=== PATIENT | female | born 1950 | race Caucasian/White ===

== ENCOUNTER → 2017-08-13 | Outpatient (CLI) | payer MEDICARE ==
--- NOTE | 2017-08-14 10:46 | MM ---
Reason for exam: screening (asymptomatic). Last mammogram was performed 1 year and 2 months ago. History: Patient is postmenopausal and history of other cancer. Physical Findings: A clinical breast exam by your physician is recommended on an annual basis and results should be correlated with mammographic findings. MG 3D Screening Mammo W/Cad Bilateral CC and MLO view(s) were taken. Prior study comparison: May 30, 2016, bilateral MG screening mammo w CAD. April 18, 1998, bilateral special view mammogram. The breast tissue is heterogeneously dense. This may lower the sensitivity of mammography. There is no discrete abnormality. No significant changes when compared with prior studies. ASSESSMENT: Negative, BI-RAD 1 RECOMMENDATION: Routine screening mammogram of both breasts in 1 year.
== END ==
LOC: RADMAMWWP 13:19
PROVIDERS: ATTEND Family Medicine
DX: Z12.31 Encounter for screening mammogram for malignant neoplasm of breast (principal)
CPT/HCPCS: 77063; G0202

== ENCOUNTER → 2019-03-04 | Outpatient (CLI) | payer MEDICARE ==
--- NOTE | 2019-03-04 11:04 | ECHOF ---
Referral Reason:R07.9 chest pain/I10 hypertention MEASUREMENTS -------- HEIGHT: 167.6 cm WEIGHT: 56.7 kg BP: RVIDd: 2.8 cm (< 3.3) IVSd: 1.0 cm (0.6 - 1.1) LVIDd: 3.2 cm (3.9 - 5.3) LVPWd: 1.0 cm (0.6 - 1.1) IVSs: 1.2 cm LVIDs: 2.2 cm LVPWs: 1.1 cm LAESV Index (A-L): 18.04 ml/m Ao Diam: 2.3 cm (2.0 - 3.7) AV Cusp: 1.5 cm (1.5 - 2.6) LA Diam: 2.8 cm (2.7 - 3.8) MV EXCURSION: 12.690 mm (> 18.000) MV EF SLOPE: 79 mm/s (70 - 150) EPSS: 0.3 cm MV E Joe: 0.62 m/s MV DecT: 347 ms MV A Joe: 0.61 m/s MV E/A Ratio: 1.02 RAP: 5.00 mmHg RVSP: 26.66 mmHg FINDINGS -------- Sinus rhythm. This was a technically good study. The left ventricular size is normal. Left ventricular wall thickness is normal. Overall left vent ricular systolic function is normal with, an EF between 55 - 60 %. The right ventricle is normal in size and function. Normal LA size by volume 22+/-6 ml/m2. The right atrium is normal in size. Aortic valve is trileaflet and is mildly thickened. There is no evidence of aortic regurgitation. There is no evidence of aortic stenosis. The mitral valve leaflets are mildly thickened. There is trace to mild mitral regurgitation. Ther e is mildly calcified chordae. Trace tricuspid regurgitation present. Right ventricular systolic pressure is normal at < 35 mmHg. There is no evidence of pulmonary hypertension. Trace/mild (physiologic) pulmonic regurgitation. The aortic root size is normal. Normal inferior vena cava with normal inspiratory collapse consistent with estimated right atrial pre ssure of 5 mmHg. There is no pericardial effusion. CONCLUSIONS -------- 1. Sinus rhythm. 2. This was a technically good study. 3. The left ventricular size is normal. 4. Left ventricular wall thickness is normal. 5. Overall left ventricular systolic function is normal with, an EF between 55 - 60 %. 6. Normal LA size by volume 22+/-6 ml/m2. 7. Aortic valve is trileaflet and is mildly thickened. 8. The mitral valve leaflets are mildly thickened. 9. There is trace to mild mitral regurgitation. 10. There is mildly calcified chordae. 11. Trace tricuspid regurgitation present. 12. Right ventricular systolic pressure is normal at < 35 mmHg. 13. There is no evidence of pulmonary hypertension. 14. Trace/mild (physiologic) pulmonic regurgitation. 15. The aortic root size is normal. 16. There is no pericardial effusion. BIOFUELS MANAGER: Gene Aldridge RDCS
--- NOTE | 2019-03-04 11:07 | P.STRESS ---
- Stress Test Note Stress Test Results/Findings: Exam Performed: stress test Exam Date: 03/04/19 Reason for Exam: Chest Pain Height: 5 ft 6 in Weight: 56.699 kg Protocol: Jb Stage: 2 Duration of Exercise: 3:30 Resting Heart Rate: 64 Resting Blood Pressure: 146/83 Maximum Achieved Heart Rate: 124 Maximum Achieved Blood Pressure: 192/70 85% PMHR: 129 100% PMHR: 152 METS: 5.2 Technologist Comment: Stress Test Results/Findings: This is a 68-year-old female being evaluated for symptoms of chest pain and shortness of breath and also palpitations. She has history of hypertension, hypercholesterolemia and family history of ischemic heart disease. Stress data: The baseline EKG showed sinus rhythm with normal NC interval and QRS duration. Patient walked on the Jb protocol for about 4 minutes achieving a maximum heart rate of 124 with a blood pressure 185/78. EKGs taken during and after exercise did not reveal any significant changes from the baseline. Final impression: #1. Negative stress test #2 . Patient experienced shortness of breath and chest tightness. #3. No arrhythmias noted. #4. Limited excess capacity #5 the symptoms resolved with rest
--- NOTE | 2019-03-06 11:25 | EST ---
Stress Test Results/Findings: Exam Performed: stress test Exam Date: 03/04/19 Reason for Exam: Chest Pain Height: 5 ft 6 in Weight: 56.699 kg Protocol: Jb Stage: 2 Duration of Exercise: 3:30 Resting Heart Rate: 64 Resting Blood Pressure: 146/83 Maximum Achieved Heart Rate: 124 Maximum Achieved Blood Pressure: 192/70 85% PMHR: 129 100% PMHR: 152 METS: 5.2 Technologist Comment: Stress Test Results/Findings: This is a 68-year-old female being evaluated for symptoms of chest pain and shortness of breath and also palpitations. She has history of hypertension, hypercholesterolemia and family history of ischemic heart disease. Stress data: The baseline EKG showed sinus rhythm with normal ND interval and QRS duration. Patient walked on the Jb protocol for about 4 minutes achieving a maximum heart rate of 124 with a blood pressure 185/78. EKGs taken during and after exercise did not reveal any significant changes from the baseline. Final impression: #1. Negative stress test #2 . Patient experienced shortness of breath and chest tightness. #3. No arrhythmias noted. #4. Limited excess capacity #5 the symptoms resolved with rest MTDD
== END | disposition home or self-care (01) ==
LOC: RADNMMAIN 08:52
PROVIDERS: ATTEND Family Medicine
DX: I34.0 Nonrheumatic mitral (valve) insufficiency (principal); I10 Essential (primary) hypertension
CPT/HCPCS: 93017; 93306

== ENCOUNTER → 2019-07-15 | Outpatient (CLI) | payer MEDICARE ==
--- NOTE | 2019-07-17 07:53 | MM ---
Reason for exam: screening (asymptomatic). Last mammogram was performed 1 year and 11 months ago. History: Patient is postmenopausal and history of other cancer. Physical Findings: A clinical breast exam by your physician is recommended on an annual basis and results should be correlated with mammographic findings. MG 3D Screening Mammo W/Cad Bilateral CC and MLO view(s) were taken. Prior study comparison: August 13, 2017, bilateral MG 3d screening mammo w/cad. May 30, 2016, bilateral MG screening mammo w CAD. The breast tissue is heterogeneously dense. This may lower the sensitivity of mammography. Benign appearing calcifications in the left breast. No significant changes when compared with prior studies. ASSESSMENT: Benign, BI-RAD 2 RECOMMENDATION: Routine screening mammogram of both breasts in 1 year.
== END | disposition home or self-care (01) ==
LOC: RADMAMWWP 13:55
PROVIDERS: ATTEND Family Medicine
DX: Z12.31 Encounter for screening mammogram for malignant neoplasm of breast (principal)
CPT/HCPCS: 77063; 77067

== ENCOUNTER → 2021-08-08 | Outpatient (CLI) | payer MEDICARE ==
--- NOTE | 2021-08-09 04:34 | MR ---
EXAMINATION TYPE: MR shoulder RT wo con DATE OF EXAM: 08/08/2021 COMPARISON: None HISTORY: Right Shoulder pain Multiplanar multiecho imaging of the right shoulder without contrast. There is shoulder joint effusion. Subscapularis tendon is intact. There is fluid around the biceps te ndon. Glenoid harvey appear fairly normal. There is some spurring on the humeral head. There is osteoa rthritic narrowing of the glenohumeral joint space. There is spurring at the AC joint and mild subacr omial impingement. There is mild thickening of the supraspinatus tendon at the greater tuberosity of the humerus. I see no full-thickness tear. There is partial tear. There is no evidence of a fracture. IMPRESSION: Moderate hypertrophic osteoarthritis at the shoulder joint. Mild subacromial impingement. Shoulder mee int effusion consistent with synovitis. There is small partial tear of the supraspinatus tendon. No f ull-thickness tear.
== END | disposition home or self-care (01) ==
LOC: RADMRIMAIN 12:38
PROVIDERS: ATTEND Orthopaedic Surgery
DX: M19.011 Primary osteoarthritis, right shoulder (principal); M75.111 Incomplete rotator cuff tear or rupture of right shoulder, not specified as traumatic

== ENCOUNTER → 2021-08-18 | Outpatient (CLI) | payer MEDICARE ==
--- NOTE | 2021-08-21 09:23 | MM ---
Reason for exam: screening (asymptomatic). Last mammogram was performed 2 years and 1 month ago. History: Patient is postmenopausal and history of other cancer. Benign excisional biopsy of the right breast, 2000. Physical Findings: A clinical breast exam by your physician is recommended on an annual basis and results should be correlated with mammographic findings. MG 3D Screening Mammo W/Cad Bilateral CC and MLO view(s) were taken. Prior study comparison: July 15, 2019, bilateral MG 3d screening mammo w/cad. August 13, 2017, bilateral MG 3d screening mammo w/cad. The breast tissue is heterogeneously dense. This may lower the sensitivity of mammography. There is no discrete abnormality. No significant changes when compared with prior studies. ASSESSMENT: Negative, BI-RAD 1 RECOMMENDATION: Routine screening mammogram of both breasts in 1 year.
== END | disposition home or self-care (01) ==
LOC: RADMAMWWP 07:44
PROVIDERS: ATTEND Family Medicine
DX: Z12.31 Encounter for screening mammogram for malignant neoplasm of breast (principal); Z78.0 Asymptomatic menopausal state
CPT/HCPCS: 77063; 77067

== ENCOUNTER 2021-09-13 07:16 | Day surgery (SDC) | payer MEDICARE ==
[2021-09-12 08:46] VITALS: BMI 22.1
--- NOTE | 2021-09-12 18:28 | HP ---
HISTORY AND PHYSICAL REASON FOR ADMISSION: Surgery is scheduled for 09/13/2021 HISTORY OF PRESENT ILLNESS: Sunitha Dia is a 71-year-old patient seen with progressive right shoulder pain. We discussed options for treatment. She elected to proceed with right shoulder arthroscopy. Consent was obtained. PAST MEDICAL HISTORY: Hyperlipidemia and hypertension. PAST SURGICAL HISTORY: Left wrist surgery. DAILY MEDICATIONS: Amlodipine, aspirin. ALLERGIES: None. SOCIAL HISTORY: Denies tobacco use. PHYSICAL EVALUATION OF THE RIGHT SHOULDER: Flexion is 130 degrees, abduction is 100 degrees. External rotation is 40 degrees with weakness. Tenderness along the anterolateral acromion and rotator cuff insertion site. Impingement positive at 90 degrees. Cross-body adduction sign is positive. Drop-arm sign is positive. Distal neurovascular exam is intact. RADIOGRAPHS: Right shoulder radiographs revealed a lateral downsloping anterior acromion and cystic changes of the tuberosity. Right shoulder MRI revealed impingement, acromioclavicular joint osteoarthritis and partial rotator cuff tendon tear. IMPRESSION: 1. Right shoulder impingement with partial rotator cuff tear. 2. Right shoulder acromioclavicular joint osteoarthritis. 3. Hyperlipidemia. 4. Hypertension. PLAN: Right shoulder arthroscopy with subacromial decompression, possible arthroscopic rotator cuff repair, Shannon procedure and debridement. Surgery scheduled for 09/13/2021. MMODL / IJN: [id number] /
[2021-09-13] MEDS ORDERED: ONDANSETRON 4 MG/2 ML VIAL IVP ONE (07:43)
[2021-09-13] MEDS ORDERED: LIDOCAINE 1% (10MG/ML) FOR IV START INTRADERMA PRN (07:43)
[2021-09-13] MEDS ORDERED: DEXAMETHASONE SOD PHOSPHATE 4 MG/ML 1 ML VIAL IV ONE (07:43)
[2021-09-13] MEDS ORDERED: MIDAZOLAM 2 MG/2 ML VIAL IV PRN (07:43)
[2021-09-13] MEDS ORDERED: HYDROmorphone 0.5 MG/0.5 ML SYRINGE IVP PRN (07:43)
[2021-09-13] MEDS ORDERED: LACTATED RINGERS 1,000 ML IV SCH (07:43)
[2021-09-13] MEDS ORDERED: MIDAZOLAM 2 MG/2 ML VIAL IV ONE (08:40)
[2021-09-13 08:41] LABS: African American GFR (CKD) >90 (>60 ml/min/1.73 sqM); Anion Gap 10 mmol/L; Blood Urea Nitrogen 13 mg/dL (7-17); Calcium 9.9 mg/dL (8.4-10.2); Carbon Dioxide 22 mmol/L (22-30); Chloride 106 mmol/L (98-107); Glucose 131 mg/dL (74-99); Non-African American GFR(CKD) >90 (>60 ml/min/1.73 sqM); Potassium 4.2 mmol/L (3.5-5.1); Sodium 138 mmol/L (137-145)
[2021-09-13] MEDS ORDERED: SUCCINYLCHOLINE CHLORIDE 100 MG/5 ML SYR IV ONE (08:52)
[2021-09-13] MEDS ORDERED: ROPIVACAINE 5 MG/ML 30 ML VIAL ONE (08:52)
[2021-09-13] MEDS ORDERED: ePHEDrine SULFATE/0.9% NACL/PF 50 MG/5 ML SYRINGE IV ONE (08:52)
[2021-09-13] MEDS ORDERED: PROPOFOL 10 MG/ML 20 ML VIAL IV ONE (08:52)
[2021-09-13] MEDS ORDERED: fentaNYL (PF) 50 MCG/ML 2 ML AMP ONE (08:52)
[2021-09-13] MEDS ORDERED: LIDOCAINE 1% INJ 10MG/ML (20 ML MDV) ONE (08:52)
[2021-09-13 10:20] VITALS: TEMP 97.1
--- NOTE | 2021-09-13 10:32 | P.OP ---
Date of Procedure: 09/13/21 Preoperative Diagnosis: Right shoulder impingement Postoperative Diagnosis: 1. Right shoulder rotator cuff tear 2. Right shoulder impingement 3. Right shoulder acromioclavicular joint osteoarthritis 4. Right shoulder partial long head biceps tendon tear 5. 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 Right shoulder arthroscopic rotator cuff repair 2. Right shoulder arthroscopic subacromial decompression 3. Right shoulder arthroscopic Shannon procedure 4. Right shoulder arthroscopic biceps tenotomy 5. Right shoulder arthroscopic chondroplasty humeral head Implants: 15.5 Arthrex swivel lock anchor Anesthesia: GETA, regional (Interscalene block) Surgeon: Darius Douglas Advertising Manager #1: Ascencion Springer Estimated Blood Loss (ml): 7 Pathology: none sent Condition: stable Disposition: PACU Indications for Procedure: 71-year-old patient seen with progressive right shoulder pain. After treatment options discussed, she elected to proceed with arthroscopy. Operative Findings: See description of procedure Description of Procedure: Patient underwent an interscalene block by department of anesthesia. The patient was then taken to the operative suite. The patient underwent a general anesthetic by the department of anesthesia. The patient was placed into a lateral position and secured. There was appropriate padding of the bony prominence. Right shoulder was then prepped and draped in normal sterile orthopedic fashion. We placed the extremity in 10 pounds of longitudinal traction. A posterior incision was now made for a posterior working portal site. The trocar and cannula were inserted into the glenohumeral joint. Arthroscopy was initiated. Spinal needle was now inserted anteriorly, to ascertain the anterior working portal site. An incision was now made in that area, a trocar was inserted followed by a probe. There was an area of grade 12 chondromalacia humeral head with osteochondral tear present. There were Gen. I raised grade 2 chondromalacia changes of the glenoid fossa. There was hyperemia and partial tearing of the long head biceps tendon. The labrum was probed and found to be stable. I performed an arthroscopic biceps tenotomy. I performed a chondroplasty of the humeral head. The residual osteochondral surface of the humeral head was stable. The residual labrum was stable. Instruments were now removed from the glenohumeral joint. Utilizing the posterior working portal site, the trocar and cannula were inserted into the subacromial space. Arthroscopy initiated. I made an incision 2 fingerbreadths lateral to the acromion. I introduced my trocar followed by my ArthroCare ablator. I now began ablating thick subacromial bursal tissue, which exposed the undersurface of the anterior acromion. There was diminished subacromial space. There was a very prominent anterior acromion. A motorized bur was introduced and a subacromial decompression was performed. I also excised so me osteophytes off the inferior aspect of the distal clavicle. The AC joint was visualized and noted to be fairly arthritic. The motorized bur was introduced in the anterior portal site and a Shannon procedure was performed without difficulty, decompressing the AC joint nicely. I turned my attention to the rotator cuff. There was a 1.5 cm rotator cuff tendon tear along the anterior aspect of the distal supraspinatus. I debrided the margins getting down to stable tendon tissue. I abraded the footprint with a motorized bur. With the assistance of Charlie SALMERON I passed 2 everted mattress sutures through good bites of rotator cuff tendon. I punched a hole in the footprint for insertion of an anchor. All 4 limbs of suture were passed through the eyelet of a 5.5 Arthrex swivel lock anchor. I placed the eyelet into the pre-punched hole. I held that in position while Charlie SALMERON tensioned all sutures and deployed the anchor with good fixation noted. All residual suture limbs were now clipped. We had good compression of the tendon along the entire footprint. Instruments now removed from the portal sites. All portal sites were approximated with nylon suture. Sterile dressings were applied followed by a shoulder sling. Ascencion SALMERON assisted in this complex case. The patient was awakened, transferred to a bed, and taken to recovery in stable condition.
[2021-09-13 10:48] VITALS: RESP 16
[2021-09-13 11:37] VITALS: BP 144/76; PULSE 90
--- NOTE | 2021-09-13 14:00 | P.ANPRN ---
Procedure Note - Anesthesia - Nerve Block Performed Right Interscalene Single Time Out Performed: Yes (840) Date of Procedure: 09/13/21 Procedure Start Time: 08:41 Procedure Stop Time: 08:46 Location of Patient: PreOp Indication: Acute Post-Operative Pain, Requested by Surgeon Specifically requested for management of pain by DrJuan Antonio: Darius Douglas Sedation Type: Sedate with meaningful contact maintained Preparation: Sterile Prep Position: Supine Catheter: None Needle Types: Pajunk Needle Gauge: 21 Ultrasound used to visualize needle placement: Yes Ultrasound used to observe medication spread: Yes Injectate: 0.5% Ropivacaine (see comment for volume) (0.5) Blood Aspirated: No Pain Paresthesia on Injection Noted: No Resistance on Injection: Normal Image Stored and Saved: Yes Events: Uneventful and Well Tolerated
== END 2021-09-13 12:02 | disposition home or self-care (01) ==
LOC: OR 07:16
PROVIDERS: ATTEND Orthopaedic Surgery
DX: M75.101 Unspecified rotator cuff tear or rupture of right shoulder, not specified as traumatic (principal); M19.011 Primary osteoarthritis, right shoulder; M25.811 Other specified joint disorders, right shoulder; M94.211 Chondromalacia, right shoulder; M25.711 Osteophyte, right shoulder; S46.111A Strain of muscle, fascia and tendon of long head of biceps, right arm, initial encounter; X58.XXXA Exposure to other specified factors, initial encounter; I10 Essential (primary) hypertension; R78.9 Finding of unspecified substance, not normally found in blood; E78.5 Hyperlipidemia, unspecified; Z79.82 Long term (current) use of aspirin; Z79.899 Other long term (current) drug therapy; Z88.5 Allergy status to narcotic agent
CPT/HCPCS: 64415; 76942; 80048; 29826; 29827; 29824; C1713; J2250; J1100; J2405; J0690; J2001; J3010; J2795; J0330; J2704

== ENCOUNTER 2021-11-19 16:16 | Inpatient (IN) | payer MEDICARE ==
[2021-11-19] MEDS ORDERED: SODIUM CHLORIDE 0.9% 1,000 ML IV STA (16:34)
[2021-11-19 16:50] LABS: Basophils % (A) 0 %; Eosinophils % (A) 0 %; HCT 37.3 % (34.0-46.0); HGB 12.9 gm/dL (11.4-16.0); Lymphocytes # (A) 0.3 k/uL (1.0-4.8); Lymphocytes % (A) 15 %; MCH 30.5 pg (25.0-35.0); MCHC 34.5 g/dL (31.0-37.0); MCV 88.5 fL (80.0-100.0); Monocytes # (A) 0.1 k/uL (0-1.0); Monocytes % (A) 3 %; Neutrophils # (A) 1.7 k/uL (1.3-7.7); Neutrophils % (A) 81 %; Platelet Count 103 k/uL (150-450); RBC 4.22 m/uL (3.80-5.40); RDW 13.5 % (11.5-15.5); WBC 2.1 k/uL (3.8-10.6)
[2021-11-19 17:03] LABS: INR 0.9 (<1.2); Prothrombin Time 10.1 sec (9.0-12.0)
[2021-11-19 17:06] LABS: Albumin 3.7 g/dL (3.5-5.0); Calcium 8.4 mg/dL (8.4-10.2); Magnesium 2.2 mg/dL (1.6-2.3); Potassium 3.4 mmol/L (3.5-5.1); Total Bilirubin 0.7 mg/dL (0.2-1.3); Total Protein 6.7 g/dL (6.3-8.2)
[2021-11-19 17:12] LABS: Partial Thromboplastin Time 21.7 sec (22.0-30.0)
--- NOTE | 2021-11-19 17:41 | XR ---
EXAMINATION TYPE: XR chest 2V DATE OF EXAM: 11/19/2021 COMPARISON: NONE HISTORY: Syncope TECHNIQUE: 2 views FINDINGS: Heart and mediastinum are normal. There is a 4 cm patch of infiltrate in the left lower lob e. There is a mild interstitial infiltrate right lower lobe. Heart size is normal. There is no perica rdial effusion. There is no pleural effusion. There are chest leads. Bony thorax is intact. IMPRESSION: Mild bilateral pulmonary infiltrates. Normal heart. No heart failure.
[2021-11-19] MEDS ORDERED: ACETAMINOPHEN TAB 500 MG TAB PO STA (18:35)
[2021-11-19] MEDS ORDERED: NALOXONE 0.4 MG/ML 1 ML VIAL IV PRN (18:40)
[2021-11-19] MEDS ORDERED: ACETAMINOPHEN TAB 325 MG TAB PO PRN (18:40)
--- NOTE | 2021-11-19 18:40 | ED ---
General Adult HPI - General Chief complaint: Syncope Stated complaint: Near Syncope Source: patient, EMS Mode of arrival: EMS Limitations: no limitations - History of Present Illness Initial comments: 71-year-old female past medical history of high blood pressure presents emerg[facility] department after she had a syncopal episode. She states that she was at home in the kitchen attempting to make a cup of coffee when she felt like she was given a pass out. She called to her son however she passed out before he was able to get to her. She is unsure if she hit her head however denies any headaches, visual changes, neck pain. No external signs of trauma. She is not on blood thinners. She denied having any chest pain or shortness of breath prior to the incident. Just felt weak. States that she has had a fever on and off for the past week with associated cough and congestion. She is concerned for bronchitis. She is not vaccinated against Covid and has not been tested. Denies any sick contacts. No other alleviating, precipitating or modifying factors - Related Data Home Medications Medication Instructions Recorded Confirmed Aspirin 81 mg PO DAILY 09/12/21 11/19/21 amLODIPine BESYLATE/BENAZEPRIL 1 tab PO DAILY 09/12/21 11/19/21 [amLODIPine BESYLATE/BENAZEPRIL 5-20 MG] Ibuprofen [Motrin Ib] 400 mg PO Q8H PRN 11/19/21 11/19/21 Allergies Allergy/AdvReac Type Severity Reaction Status Date / Time codeine AdvReac nausea, Verified 11/19/21 17:15 [From Tylenol-Codeine] vomiting Review of Systems ROS Statement: Those systems with pertinent positive or pertinent negative responses have been documented in the HPI. ROS Other: All systems not noted in ROS Statement are negative. Past Medical History Past Medical History: Cancer, Hyperlipidemia, Hypertension Additional Past Medical History / Comment(s): Hx Cervical Cancer 1996. History of Any Multi-Drug Resistant Organisms: None Reported Additional Past Surgical History / Comment(s): Cysts removed from wrist and right breast, colonoscopy, D&C. Past Anesthesia/Blood Transfusion Reactions: No Reported Reaction Past Psychological History: No Psychological Hx Reported Smoking Status: Never smoker Past Alcohol Use History: Occasional Past Drug Use History: None Reported - Past Family History Mother Family Medical History: No Reported History General Exam Limitations: no limitations Course Vital Signs 11/19/21 11/19/21 11/19/21 16:18 16:22 18:52 Temperature 100.9 F H Pulse Rate 81 71 Respiratory 18 18 Rate Blood Pressure 105/57 O2 Sat by Pulse 95 95 Oximetry 11/19/21 18:53 Temperature 99.6 F Pulse Rate Respiratory Rate Blood Pressure O2 Sat by Pulse Oximetry EKG Findings - EKG Comments: EKG Findings:: EKG demonstrates normal sinus rhythm with a ventricular rate of 78. OH interval 126. QRS 80. QTC 444. No acute ST segment elevations or depressions concerning for ischemic changes Medical Decision Making - Medical Decision Making Upon arrival the patient was placed into room 1. A thorough history and physical exam was performed. Patient placed on continuous pulse ox and cardiac monitoring. 12-lead EKG is obtained. She was given a liter bolus of normal saline and a gram of Tylenol. Laboratory studies are conducted. Covid is positive. Patient has a leukopenia, thrombocytopenia with low lymphocyte count. Chest x-ray demonstrates mild bilateral pulmonary interstitial infiltrates. Patient maintaining saturations of greater than 92% without increased work of breathing. Patient is appropriate for Regen treatment. I did recommend that she remained hospitalized for her syncopal episode for which the patient did agree. Echo ordered. She is currently awaiting a bed on the floor - Lab Data Result diagrams: 11/19/21 16:37 11/19/21 16:37 Lab Results 11/19/21 11/19/21 11/19/21 Range/Units 16:37 16:37 16:37 WBC 2.1 L (3.8-10.6) k/uL RBC 4.22 (3.80-5.40) m/uL Hgb 12.9 (11.4-16.0) gm/dL Hct 37.3 (34.0-46.0) % MCV 88.5 (80.0-100.0) fL MCH 30.5 (25.0-35.0) pg MCHC 34.5 (31.0-37.0) g/dL RDW 13.5 (11.5-15.5) % Plt Count 103 L (150-450) k/uL MPV 8.0 Neutrophils % 81 % Lymphocytes % 15 % Monocytes % 3 % Eosinophils % 0 % Basophils % 0 % Neutrophils # 1.7 (1.3-7.7) k/uL Lymphocytes # 0.3 L (1.0-4.8) k/uL Monocytes # 0.1 (0-1.0) k/uL Eosinophils # 0.0 (0-0.7) k/uL Basophils # 0.0 (0-0.2) k/uL PT 10.1 (9.0-12.0) sec INR 0.9 (<1.2) APTT 21.7 L (22.0-30.0) sec Sodium 135 L (137-145) mmol/L Potassium 3.4 L (3.5-5.1) mmol/L Chloride 103 (98-107) mmol/L Carbon Dioxide 22 (22-30) mmol/L Anion Gap 10 mmol/L BUN 18 H (7-17) mg/dL Creatinine 0.95 (0.52-1.04) mg/dL Est GFR (CKD-EPI)AfAm 70 (>60 ml/min/1.73 sqM) Est GFR (CKD-EPI)NonAf 61 (>60 ml/min/1.73 sqM) Glucose 119 H (74-99) mg/dL Calcium 8.4 (8.4-10.2) mg/dL Magnesium 2.2 (1.6-2.3) mg/dL Total Bilirubin 0.7 (0.2-1.3) mg/dL AST 70 H (14-36) U/L ALT 35 H (4-34) U/L Alkaline Phosphatase 63 (38-126) U/L Troponin I (0.000-0.034) ng/mL Total Protein 6.7 (6.3-8.2) g/dL Albumin 3.7 (3.5-5.0) g/dL Coronavirus (PCR) (Not Detectd) 11/19/21 11/19/21 Range/Units 16:37 17:23 WBC (3.8-10.6) k/uL RBC (3.80-5.40) m/uL Hgb (11.4-16.0) gm/dL Hct (34.0-46.0) % MCV (80.0-100.0) fL MCH (25.0-35.0) pg MCHC (31.0-37.0) g/dL RDW (11.5-15.5) % Plt Count (150-450) k/uL MPV Neutrophils % % Lymphocytes % % Monocytes % % Eosinophils % % Basophils % % Neutrophils # (1.3-7.7) k/uL Lymphocytes # (1.0-4.8) k/uL Monocytes # (0-1.0) k/uL Eosinophils # (0-0.7) k/uL Basophils # (0-0.2) k/uL PT (9.0-12.0) sec INR (<1.2) APTT (22.0-30.0) sec Sodium (137-145) mmol/L Potassium (3.5-5.1) mmol/L Chloride (98-107) mmol/L Carbon Dioxide (22-30) mmol/L Anion Gap mmol/L BUN (7-17) mg/dL Creatinine (0.52-1.04) mg/dL Est GFR (CKD-EPI)AfAm (>60 ml/min/1.73 sqM) Est GFR (CKD-EPI)NonAf (>60 ml/min/1.73 sqM) Glucose (74-99) mg/dL Calcium (8.4-10.2) mg/dL Magnesium (1.6-2.3) mg/dL Total Bilirubin (0.2-1.3) mg/dL AST (14-36) U/L ALT (4-34) U/L Alkaline Phosphatase (38-126) U/L Troponin I <0.012 (0.000-0.034) ng/mL Total Protein (6.3-8.2) g/dL Albumin (3.5-5.0) g/dL Coronavirus (PCR) Detected A (Not Detectd) Disposition Clinical Impression: Syncope and collapse, COVID-19 Disposition: ADMITTED IP TO THIS [facility] Condition: Stable Is patient prescribed a controlled substance at d/c from ED?: No Decision to Admit Reason: Admit from EC Decision Date: 11/19/21 Decision Time: 18:40
[2021-11-19] MEDS: SODIUM CHLORIDE 0.9% 1,000 ML IV SCH (18:52)
[2021-11-19] MEDS ORDERED: BAMLANIVIMAB (EUA) 700 MG, ETESEVIMAB (EUA) 1,400 MG in SODIUM CHLORIDE 0.9% 50 ML IVPB ONE (19:30)
[2021-11-19] MEDS ORDERED: SODIUM CHLORIDE 0.9% 50 ML IVPB ONE (19:30)
[2021-11-19] MEDS ORDERED: Potassium Replacement Protocol 1 EACH MISC MISCELLANE PRN (22:55)
[2021-11-19] MEDS: POTASSIUM CHLORIDE ER 20 MEQ TAB.ER PO SCH (23:05)
[2021-11-20] MEDS: POTASSIUM CHLORIDE ER 20 MEQ TAB.ER PO SCH (00:15)
[2021-11-20] MEDS: SODIUM CHLORIDE 0.9% 1,000 ML IV SCH ×2 (08:57→21:47)
[2021-11-20] MEDS: lisinopriL 20 MG TAB PO SCH (08:58)
[2021-11-20] MEDS ORDERED: amLODIPine 5 MG TAB PO SCH (09:00)
[2021-11-20 09:29] LABS: Anion Gap 10.6 mmol/L (10.00-18.00); BUN/Creat Ratio 19.86 Ratio (12.00-20.00); Blood Urea Nitrogen 13.9 mg/dL (9.0-27.0); Carbon Dioxide 18.4 mmol/L (20.0-27.5); Non-African American GFR(CKD) 87.2 (60.0-200.0); Potassium 4.9 mmol/L (3.5-5.5)
[2021-11-20 10:19] LABS: Basophils # (A) 0.01 X 10*3/uL (0.00-0.10); Basophils % (A) 0.4 %; Eosinophils # (A) 0 X 10*3/uL (0.04-0.35); Eosinophils % (A) 0 %; HGB 12.4 g/dL (12.0-15.0); Lymphocytes # (A) 0.25 X 10*3/uL (0.90-5.00); Lymphocytes % (A) 9.8 %; MCHC 31.8 g/dL (32.0-37.0); MCV 94.2 fL (80.0-97.0); Mean Platelet Volume 10.1 fL (9.5-12.2); Monocytes # (A) 0.11 X 10*3/uL (0.20-1.00); Monocytes % (A) 4.3 %; Neutrophils # (A) 2.14 X 10*3/uL (1.80-7.70); Neutrophils % (A) 84.3 %; Platelet Count 86 X 10*3/uL (140-440); RBC 4.14 X 10*6/uL (4.10-5.20); RDW 13.8 % (11.5-14.5); WBC 2.54 X 10*3/uL (4.50-10.00)
[2021-11-20] MEDS: ASPIRIN 81 MG PO SCH (10:47)
--- NOTE | 2021-11-20 13:27 | P.HPIM ---
History of Present Illness 71-year-old pleasant female came in with complaints of loss of consciousness and Jasmine's weakness and fatigue. Patient is found to have Covid 19. When questioned patient was having symptoms of cough and generalized fatigue going on for about 2 weeks. Patient does have mild infiltrate on the chest x-ray. Patient is presently saturating borderline 91% because of which I'll monitor 1 more night. Patient did receive Monocryl antibody infusion yesterday patient does have high-grade fever of 101. Patient blood pressures borderline low normal. Echo was ordered patient is on both amlodipine and the LAURA inhibitor amlodipine is being discontinued can you with LAURA inhibitor at this time. Patient feels better today. Patient was bit hyponatremic which improved at this time. REVIEW OF SYSTEMS: CONSTITUTIONAL: As mentioned in HPI HEENT: No recent visual problems or hearing problems. Denied any sore throat. CARDIOVASCULAR: No chest pain, orthopnea, PND, no palpitations. PULMONARY: No shortness of breath, no hemoptysis. GASTROINTESTINAL: No diarrhea, no nausea, no vomiting, no abdominal pain. NEUROLOGICAL: No headaches, no weakness, no numbness. HEMATOLOGICAL: Denies any bleeding or petechiae. GENITOURINARY: Denies any burning micturition, frequency, or urgency. MUSCULOSKELETAL/RHEUMATOLOGICAL: Denies any joint pain, swelling, or any muscle pain. ENDOCRINE: Denies any polyuria or polydipsia. The rest of the 14-point review of systems is negative. PHYSICAL EXAMINATION: GENERAL: The patient is alert and oriented x3, not in any acute distress. Well developed, well nourished. HEENT: Pupils are round and equally reacting to light. EOMI. No scleral icterus. No conjunctival pallor. Normocephalic, atraumatic. No pharyngeal erythema. No thyromegaly. CARDIOVASCULAR: S1 and S2 present. No murmurs, rubs, or gallops. PULMONARY: Chest is clear to auscultation, no wheezing or crackles. ABDOMEN: Soft, nontender, nondistended, normoactive bowel sounds. No palpable organomegaly. MUSCULOSKELETAL: No joint swelling or deformity. EXTREMITIES: No cyanosis, clubbing, or pedal edema. NEUROLOGICAL: Gross neurological examination did not reveal any focal deficits. SKIN: No rashes. Assessment and plan -Syncope: Secondary to Covid 19 infection patient received IV fluids feeling much better today we will Allsop an echo EKG did not show any significant abnormality -Covid 19 infection and pneumonia without any hypoxemia patient will be started on multivitamins with coding we'll obtain a d-dimer, crusting have borderline oxygen saturation of monitor her overnight. -Hypertension DVT prophylaxis: Lovenox Past Medical History Past Medical History: Cancer, Hyperlipidemia, Hypertension Additional Past Medical History / Comment(s): Hx Cervical Cancer 1996. Arthritis, carpal tunnel left hand. History of Any Multi-Drug Resistant Organisms: None Reported Past Surgical History: Orthopedic Surgery Additional Past Surgical History / Comment(s): Cysts removed from wrist and right breast, colonoscopy, D&C. Right shoulder surgery. Past Anesthesia/Blood Transfusion Reactions: No Reported Reaction Past Psychological History: No Psychological Hx Reported Smoking Status: Former smoker Past Alcohol Use History: Occasional Additional Past Alcohol Use History / Comment(s): Quit smoking 40 yrs ago. Pt states she drinks 3 drinks/day. Past Drug Use History: None Reported - Past Family History Mother Family Medical History: No Reported History Medications and Allergies Home Medications Medication Instructions Recorded Confirmed Type Aspirin 81 mg PO DAILY 09/12/21 11/19/21 History amLODIPine BESYLATE/BENAZEPRIL 1 tab PO DAILY 09/12/21 11/19/21 History [amLODIPine BESYLATE/BENAZEPRIL 5-20 MG] Ibuprofen [Motrin Ib] 400 mg PO Q8H PRN 11/19/21 11/19/21 History Allergies Allergy/AdvReac Type Severity Reaction Status Date / Time codeine AdvReac nausea, Verified 11/19/21 17:15 [From Tylenol-Codeine] vomiting Physical Exam Vitals: Vital Signs Temp Pulse Pulse Pulse Resp BP BP 11/20/21 07:00 101.2 F H 83 18 122/55 11/20/21 04:28 11/20/21 02:00 65 20 11/20/21 01:59 97.6 F 64 16 112/63 11/19/21 22:00 57 L 20 11/19/21 20:36 97.8 F 71 20 103/52 11/19/21 20:20 11/19/21 20:15 98.1 F 65 16 93/47 11/19/21 19:43 98.6 F 70 20 106/57 11/19/21 18:53 99.6 F 11/19/21 18:52 71 18 105/57 11/19/21 16:22 81 18 11/19/21 16:18 100.9 F H Pulse Ox 11/20/21 07:00 92 L 11/20/21 04:28 92 L 11/20/21 02:00 11/20/21 01:59 92 L 11/19/21 22:00 11/19/21 20:36 94 L 11/19/21 20:20 92 L 11/19/21 20:15 89 L 11/19/21 19:43 95 11/19/21 18:53 11/19/21 18:52 95 11/19/21 16:22 95 11/19/21 16:18 Intake and Output 11/19/21 11/20/21 11/20/21 22:59 06:59 14:59 Intake Total 400 240 Output Total 1 Balance 399 240 Intake: Oral 400 240 Output: Urine 1 Other: Voiding Method Toilet Toilet # Voids 1 # Bowel Movements 1 Weight 58.967 kg Results CBC & Chem 7: 11/20/21 06:06 11/20/21 06:06 Labs: Abnormal Lab Results - Last 24 Hours (Table) 11/19/21 11/19/21 11/19/21 Range/Units 16:37 16:37 16:37 WBC 2.1 L (3.8-10.6) k/uL MCHC (32.0-37.0) g/dL Plt Count 103 L (150-450) k/uL Plt Count Comment Lymphocytes # 0.3 L (1.0-4.8) k/uL Monocytes # (0.20-1.00) X 10*3/uL Eosinophils # (0.04-0.35) X 10*3/uL APTT 21.7 L (22.0-30.0) sec Sodium 135 L (137-145) mmol/L Potassium 3.4 L (3.5-5.1) mmol/L Chloride (96-109) mmol/L Carbon Dioxide (20.0-27.5) mmol/L BUN 18 H (7-17) mg/dL Glucose 119 H (74-99) mg/dL Calcium (8.7-10.3) mg/dL AST 70 H (14-36) U/L ALT 35 H (4-34) U/L Coronavirus (PCR) (Not Detectd) 11/19/21 11/20/21 11/20/21 Range/Units 17:23 06:06 06:06 WBC 2.54 L (3.8-10.6) k/uL MCHC 31.8 L (32.0-37.0) g/dL Plt Count 86 L (150-450) k/uL Plt Count Comment DECREASED A Lymphocytes # 0.25 L (1.0-4.8) k/uL Monocytes # 0.11 L (0.20-1.00) X 10*3/uL Eosinophils # 0 L (0.04-0.35) X 10*3/uL APTT (22.0-30.0) sec Sodium (137-145) mmol/L Potassium (3.5-5.1) mmol/L Chloride 110 H (96-109) mmol/L Carbon Dioxide 18.4 L (20.0-27.5) mmol/L BUN (7-17) mg/dL Glucose (74-99) mg/dL Calcium 8.0 L (8.7-10.3) mg/dL AST (14-36) U/L ALT (4-34) U/L Coronavirus (PCR) Detected A (Not Detectd) Thrombosis Risk Factor Assmnt - Choose All That Apply Each Risk Factor Represents 2 Points: Age 61-74 years Thrombosis Risk Factor Assessment Total Risk Factor Score: 2 Thrombosis Risk Factor Assessment Level: Low Risk
[2021-11-20] MEDS: ASCORBIC ACID 500 MG TAB PO SCH (21:47)
[2021-11-21] MEDS: ASCORBIC ACID 500 MG TAB PO SCH ×2 (09:12→20:36)
[2021-11-21] MEDS: ASPIRIN 81 MG PO SCH (09:13)
[2021-11-21] MEDS: ZINC SULFATE 220 MG CAP PO SCH (09:13)
[2021-11-21] MEDS: ENOXAPARIN 40 MG/0.4 ML SYRINGE SQ SCH (09:13)
[2021-11-21] MEDS: lisinopriL 20 MG TAB PO SCH (09:13)
--- NOTE | 2021-11-21 11:48 | P.PN ---
Subjective 71-year-old pleasant female came in with complaints of loss of consciousness and Jasmine's weakness and fatigue. Patient is found to have Covid 19. When questioned patient was having symptoms of cough and generalized fatigue going on for about 2 weeks. Patient does have mild infiltrate on the chest x-ray. Patient is presently saturating borderline 91% because of which I'll monitor 1 more night. Patient did receive Monocryl antibody infusion yesterday patient does have high-grade fever of 101. Patient blood pressures borderline low normal. Echo was ordered patient is on both amlodipine and the LAURA inhibitor amlodipine is being discontinued can you with LAURA inhibitor at this time. Patient feels better today. Patient was bit hyponatremic which improved at this time. 11/21/2021 Patient the is requiring oxygen today because of which I'm start her on Decadron and pulmonary will be consulted. Constitutional: Denied any fatigue denied any fever. Cardio vascular: denied any chest pain, palpitations Gastrointestinal denied any nausea vomiting Pulmonary: As mentioned in HPI Neurologic denied any new focal deficits All inpatient medications were reviewed and appropriate changes in these medications as dictated in the interval history and assessment and plan. PHYSICAL EXAMINATION: GENERAL: The patient is alert and oriented x3, not in any acute distress. Well developed, well nourished. HEENT: Pupils are round and equally reacting to light. EOMI. No scleral icterus. No conjunctival pallor. Normocephalic, atraumatic. No pharyngeal erythema. No thyromegaly. CARDIOVASCULAR: S1 and S2 present. No murmurs, rubs, or gallops. PULMONARY: Chest is clear to auscultation, no wheezing or crackles. ABDOMEN: Soft, nontender, nondistended, normoactive bowel sounds. No palpable organomegaly. MUSCULOSKELETAL: No joint swelling or deformity. EXTREMITIES: No cyanosis, clubbing, or pedal edema. NEUROLOGICAL: Gross neurological examination did not reveal any focal deficits. SKIN: No rashes. Assessment and plan -Syncope: Secondary to Covid 19 infection patient received IV fluids feeling much better today -Acute hypoxic respiratory failure secondary to be 19 patient will be started on Decadron and pulmonary will be consulted -Covid 19 infection and pneumonia without any hypoxemia patient will be started on multivitamins with , d-dimer is slightly elevated -Hypertension DVT prophylaxis: Lovenox Objective - Vital Signs Vital signs: Vital Signs Temp 100.3 F H 11/21/21 07:30 Pulse 78 11/21/21 07:30 Resp 18 11/21/21 08:00 BP 120/64 11/21/21 07:30 Pulse Ox 93 L 11/21/21 07:30 Intake & Output 11/20/21 11/21/21 11/21/21 18:59 06:59 18:59 Intake Total 960 800 240 Balance 960 800 240 Intake: Intake, IV Titration 600 Amount Sodium Chloride 0.9% 1, 600 000 ml @ 75 mls/hr IV . [id number] [facility] Rx#:[id number] Oral 360 800 240 Other: Voiding Method Toilet Toilet # Voids 1 1 - Labs CBC & Chem 7: 11/20/21 06:06 11/20/21 06:06 Labs: Abnormal Lab Results - Last 24 Hours (Table) 11/20/21 Range/Units 14:31 D-Dimer 0.94 H (<0.60) mg/L FEU
[2021-11-21] MEDS ORDERED: REMDESIVIR 200 MG in SODIUM CHLORIDE 0.9% 250 ML IVPB ONE (12:30)
[2021-11-21] MEDS: dexAMETHasone 2 MG TAB PO SCH (13:45)
[2021-11-21] MEDS: FAMOTIDINE 20 MG TAB PO SCH ×2 (13:45→20:36)
[2021-11-21] MEDS: SODIUM CHLORIDE 0.9% 1,000 ML IV SCH ×2 (13:51→20:36)
--- NOTE | 2021-11-21 22:45 | P.CONS ---
History of Present Illness - Reason for Consult Consult date: 11/21/21 covid 19 pneumonia Requesting physician: Ezra Munguia - Chief Complaint passed out x 1 day - History of Present Illness History of present illness : Patient is a 71-year-old female presenting to the ER about 2 days ago for evaluation of a syncopal episode ap parently the patient was at home in the kitchen attempting to make a cup of coffee and the patient felt like she was going to pass out patient called her son on arrival the son the patient was on the floor patient has been complaining of some fever that started on Saturday and has been running a fever since then the patient also complaining of shortness of breath off and on did have a cough with a congested cough moderate intensity but no visible sputum patient denies having any nausea and vomiting continues on diet no abdominal pain did have some diarrhea patient is not vaccinated against COVID-19 patient on presentation the hospital have a fever 100.9 subsequently spiked a fever one 1.2 and 100.3 this morning the patient was hypoxic requiring supplemental oxygen she was at 1.89% room air is currently 92% on 2 L nasal cannula patient did have leukopenia as well as lymphopenia D-dimer is mildly elevated creatinine was normal levels of the mildly elevated. Positive Covid test patient did have a chest x-ray mild bilateral pulmonary infiltrate normal heart infectious was consulted for further management Review of system: CONSTITUTIONAL: Positive for weakness along with the fever. EYES: No complaint. ENT: No complaint. RESPIRATORY: As per history of present illness. CARDIOVASCULAR: No complaint. GENITOURINARY: No complaint. GASTROINTESTINAL: No complaint. MUSCULOSKELETAL: No complaint. INTEGUMENTARY: No complaint. PSYCHOLOGIC: No complaint. ENDOCRINE: No complaint. NEUROLOGIC: As per history of present illness. Past medical history : Reviewed, documented below Past surgical history : Reviewed, documented below Social history: Reviewed, documented below Medications: Reviewed, as documented below EXAMINATION: Vital sigans= Reviewed and documented below GENERAL DESCRIPTION: Middle-aged female lying in bed, no distress. No tachypnea or accessory muscle of respiration use. HEENT: Shows Pallor , no scleral icterus. Oral mucous membrane is dry. NECK: Trachea central, no thyromegaly. LUNGS: Unlabored breathing. Coarse breath sounds bilaterally. No wheeze or crackle. HEART: S1, S2, regular rate and rhythm. ABDOMEN: Soft, no tenderness , guarding or rigidity EXTREMITIES: No edema of feet. SKIN: No rash, no masses palpable. NEUROLOGICAL: The patient is awake, alert, oriented x3, mood and affect normal. LABS AND RADIOLOGY: Reviewed results see below Assessment : Patient presented to hospital with acute respiratory failure in this patient did have a fever hypoxemia symptoms started on November 15, 2021 with evidence of multifocal pneumonia secondary to COVID-19 patient is within therapeutic window for remdesivir and low clinical suspicion for secondary bacterial pneumonia Plan: 1-patient to be started on remdesivir 5-day protocol 2-dexamethasone Lovenox zinc and ascorbic acid 3-droplet isolation and respiratory support We will follow on clinical condition and cultures to further adjust medication if needed Thank you for this consultation we will follow the patient along with you Past Medical History Past Medical History: Cancer, Hyperlipidemia, Hypertension Additional Past Medical History / Comment(s): Hx Cervical Cancer 1996. Arthritis, carpal tunnel left hand. History of Any Multi-Drug Resistant Organisms: None Reported Past Surgical History: Orthopedic Surgery Additional Past Surgical History / Comment(s): Cysts removed from wrist and right breast, colonoscopy, D&C. Right shoulder surgery. Past Anesthesia/Blood Transfusion Reactions: No Reported Reaction Past Psychological History: No Psychological Hx Reported Smoking Status: Former smoker Past Alcohol Use History: Occasional Additional Past Alcohol Use History / Comment(s): Quit smoking 40 yrs ago. Pt states she drinks 3 drinks/day. Past Drug Use History: None Reported - Past Family History Mother Family Medical History: No Reported History Medications and Allergies Home Medications Medication Instructions Recorded Confirmed Type Aspirin 81 mg PO DAILY 09/12/21 11/19/21 History amLODIPine BESYLATE/BENAZEPRIL 1 tab PO DAILY 09/12/21 11/19/21 History [amLODIPine BESYLATE/BENAZEPRIL 5-20 MG] Ibuprofen [Motrin Ib] 400 mg PO Q8H PRN 11/19/21 11/19/21 History Allergies Allergy/AdvReac Type Severity Reaction Status Date / Time codeine AdvReac nausea, Verified 11/19/21 17:15 [From Tylenol-Codeine] vomiting Physical Exam Vitals: Vital Signs Temp Pulse Resp BP Pulse Ox 11/21/21 08:00 18 11/21/21 07:30 100.3 F H 78 18 120/64 93 L 11/21/21 02:00 98.9 F 85 20 118/66 92 L 11/20/21 20:00 99.7 F H 86 20 119/62 93 L 11/20/21 15:00 99.4 F 84 18 122/68 96 Intake and Output 11/20/21 11/21/21 11/21/21 22:59 06:59 14:59 Intake Total 420 500 240 Balance 420 500 240 Intake: Oral 420 500 240 Other: Voiding Method Toilet Toilet # Voids 1 Results CBC & Chem 7: 11/20/21 06:06 11/20/21 06:06 Labs: Abnormal Lab Results - Last 24 Hours (Table) 11/20/21 Range/Units 14:31 D-Dimer 0.94 H (<0.60) mg/L FEU
[2021-11-22] MEDS: FAMOTIDINE 20 MG TAB PO SCH ×2 (08:14→23:04)
[2021-11-22] MEDS: ASCORBIC ACID 500 MG TAB PO SCH ×2 (08:14→23:04)
[2021-11-22] MEDS: ENOXAPARIN 40 MG/0.4 ML SYRINGE SQ SCH ×2 (08:14→23:04)
[2021-11-22] MEDS: dexAMETHasone 2 MG TAB PO SCH (08:14)
[2021-11-22] MEDS: ASPIRIN 81 MG PO SCH (08:14)
[2021-11-22] MEDS: lisinopriL 20 MG TAB PO SCH (08:14)
[2021-11-22] MEDS: ZINC SULFATE 220 MG CAP PO SCH (08:14)
[2021-11-22 08:27] LABS: African American GFR (CKD) >90 (>60 ml/min/1.73 sqM); Anion Gap 6 mmol/L; Blood Urea Nitrogen 15 mg/dL (7-17); Calcium 8.2 mg/dL (8.4-10.2); Carbon Dioxide 21 mmol/L (22-30); Chloride 113 mmol/L (98-107); Glucose 138 mg/dL (74-99); Magnesium 2.2 mg/dL (1.6-2.3); Non-African American GFR(CKD) >90 (>60 ml/min/1.73 sqM); Potassium 3.4 mmol/L (3.5-5.1); Sodium 140 mmol/L (137-145)
[2021-11-22] MEDS ORDERED: DILTIAZEM 125 MG in SODIUM CHLORIDE 0.9% 100 ML IV SCH (08:30)
[2021-11-22 08:43] LABS: T4, Free (Free Thyroxine) 1.35 ng/dL (0.78-2.19)
--- NOTE | 2021-11-22 09:59 | ECHOF ---
Referral Reason:syncope MEASUREMENTS -------- HEIGHT: 175.3 cm WEIGHT: 63.0 kg BP: RVIDd: 2.5 cm (< 3.3) IVSd: 0.9 cm (0.6 - 1.1) LVIDd: 3.8 cm (3.9 - 5.3) LVPWd: 1.0 cm (0.6 - 1.1) IVSs: 1.5 cm LVIDs: 2.1 cm LVPWs: 1.5 cm LA Diam: 2.9 cm (2.7 - 3.8) RAP: 5.00 mmHg RVSP: 32.43 mmHg FINDINGS -------- Sinus rhythm. PT IS COVID POSITIVE. The left ventricular size is normal. Overall left ventricular systolic function is low-normal with, an EF between 50 - 55 %. The left atrial size is normal. The right atrial size is normal. [id number] mitral regurgitation is present. Mild tricuspid regurgitation present. Right ventricular systolic pressure is normal at < 35 mmHg. CONCLUSIONS -------- 1. PT IS COVID POSITIVE. 2. The left ventricular size is normal. 3. Overall left ventricular systolic function is low-normal with, an EF between 50 - 55 %. 4. The left atrial size is normal. 5. The right atrial size is normal. 6. [id number] mitral regurgitation is present. 7. Mild tricuspid regurgitation present. ACTUARIAL CLERK: Lula Rico RDCS
--- NOTE | 2021-11-22 11:16 | P.CRDCN ---
History of Present Illness Consult date: 11/22/21 History of present illness: The patient is a 71-year-old female patient with a past medical history significant for hypertension. We requested to see the patient here on the observation unit for further evaluation of atrial fibrillation with rapid ventricular response. The patient never tach most was atrial fibrillation in the past. She was in her usual state of health until she developed an episode of loss of consciousness preceded by weakness and fatigue. She reported no symptoms of heart racing or fluttering and no symptoms of chest pain or chest discomfort. She presented to the emergency department where she underwent a workup and she was tested positive for COVID-19 infection. The patient reports no fever or chills. The chest x-ray showed infiltrate consistent with underlying pneumonia. Her oxygen saturation was about 91%. Currently the patient is on isolation until she was seen by the infectious disease service and she is getting treated for COVID-19 infection. Requested to see the patient mainly because of new onset atrial fibrillation with RVR. The A. fib documented by EKG which I reviewed. Subsequently the patient was started on Cardizem drip and she was converted to normal sinus mechanism. She was receiving Lovenox daily which I increased to twice a day to be therapeutic. Beside that we obtain an echocardiogram which revealed normal left ventricular systolic function without significant valvular abnormalities. Past Medical History Past Medical History: Cancer, Hyperlipidemia, Hypertension Additional Past Medical History / Comment(s): Hx Cervical Cancer 1996. Arthritis, carpal tunnel left hand. History of Any Multi-Drug Resistant Organisms: None Reported Past Surgical History: Orthopedic Surgery Additional Past Surgical History / Comment(s): Cysts removed from wrist and right breast, colonoscopy, D&C. Right shoulder surgery. Past Anesthesia/Blood Transfusion Reactions: No Reported Reaction Past Psychological History: No Psychological Hx Reported Smoking Status: Former smoker Past Alcohol Use History: Occasional Additional Past Alcohol Use History / Comment(s): Quit smoking 40 yrs ago. Pt states she drinks 3 drinks/day. Past Drug Use History: None Reported - Past Family History Mother Family Medical History: No Reported History Medications and Allergies Home Medications Medication Instructions Recorded Confirmed Type Aspirin 81 mg PO DAILY 09/12/21 11/19/21 History amLODIPine BESYLATE/BENAZEPRIL 1 tab PO DAILY 09/12/21 11/19/21 History [amLODIPine BESYLATE/BENAZEPRIL 5-20 MG] Ibuprofen [Motrin Ib] 400 mg PO Q8H PRN 11/19/21 11/19/21 History Allergies Allergy/AdvReac Type Severity Reaction Status Date / Time codeine AdvReac nausea, Verified 11/19/21 17:15 [From Tylenol-Codeine] vomiting Physical Exam Vitals: Vital Signs Temp Pulse Pulse Resp BP Pulse Ox 11/22/21 07:00 97.4 F L 69 18 110/77 91 L 11/22/21 00:57 97.7 F 65 20 124/71 93 L 11/21/21 19:53 98.1 F 66 22 120/70 93 L 11/21/21 15:00 98.2 F 72 16 119/67 96 11/21/21 14:00 57 L 72 16 Intake and Output 11/21/21 11/22/21 11/22/21 22:59 06:59 14:59 Intake Total 180 180 Balance 180 180 Intake: Oral 180 180 - Constitutional General appearance: no acute distress Results 11/20/21 06:06 11/22/21 07:46 Comprehensive Metabolic Panel 11/22/21 Range/Units 07:46 Sodium 140 (137-145) mmol/L Potassium 3.4 L (3.5-5.1) mmol/L Chloride 113 H (98-107) mmol/L Carbon Dioxide 21 L (22-30) mmol/L BUN 15 (7-17) mg/dL Creatinine 0.52 (0.52-1.04) mg/dL Glucose 138 H (74-99) mg/dL Calcium 8.2 L (8.4-10.2) mg/dL Current Medications Generic Name Dose Route Start Last Admin Trade Name Freq PRN Reason Stop Dose Admin Acetaminophen 650 mg 11/19/21 18:40 11/20/21 08:14 Acetaminophen Tab 325 Mg Tab PO 650 mg Q6HR PRN Administration Mild Pain or Fever > 100.5 Ascorbic Acid 500 mg 11/20/21 21:00 11/22/21 08:14 Ascorbic Acid 500 Mg Tab PO 500 mg BID ANIVAL Administration Aspirin 81 mg 11/20/21 09:00 11/22/21 08:14 Aspirin 81 Mg PO 81 mg DAILY ANIVAL Administration Dexamethasone 6 mg 11/21/21 11:45 11/22/21 08:14 Dexamethasone 2 Mg Tab PO 6 mg DAILY ANIVAL Administration Enoxaparin Sodium 40 mg 11/22/21 21:00 Enoxaparin 40 Mg/0.4 Ml Syringe SQ Q12HR ANIVAL Famotidine 20 mg 11/21/21 11:45 11/22/21 08:14 Famotidine 20 Mg Tab PO 20 mg BID ANIVAL Administration Sodium Chloride 1,000 mls @ 75 mls/hr 11/19/21 18:45 11/21/21 20:36 Saline 0.9% IV 75 mls/hr .[id number] ANIVAL Administration Remdesivir 100 mg/ Sodium 250 mls @ 250 mls/hr 11/22/21 12:00 Chloride IVPB 11/25/21 12:59 Q24H ANIVAL Diltiazem HCl 125 mg/ Sodium 125 mls @ 5 mls/hr 11/22/21 08:30 11/22/21 08:47 Chloride IV 5 mg/hr .Q24H ANIVAL 5 mls/hr Administration 5 MG/HR Lisinopril 20 mg 11/20/21 09:00 11/22/21 08:14 Lisinopril 20 Mg Tab PO 20 mg DAILY ANIVAL Administration Miscellaneous Information 1 each 11/19/21 22:55 Potassium Replacement Protocol 1 Each Misc MISCELLANE DAILY PRN Per Protocol Protocol Naloxone HCl 0.2 mg 11/19/21 18:40 Naloxone 0.4 Mg/Ml 1 Ml Vial IV Q2M PRN Opioid Reversal Zinc Sulfate 220 mg 11/21/21 09:00 11/22/21 08:14 Zinc Sulfate 220 Mg Cap PO 220 mg DAILY ANIVAL Administration Intake and Output 11/21/21 11/22/21 11/22/21 22:59 06:59 14:59 Intake Total 180 180 Balance 180 180 Intake: Oral 180 180 11/20/21 06:06 11/22/21 07:46 Assessment and Plan Assessment: Assessment #1 COVID-19 infection #2 syncopal episode #3 A. fib with RVR. This is a newly diagnosis of the patient. Plan #1 the echo was reviewed and revealed normal LV function without significant valvular abnormalities #2 the syncope could be related to conversion pause. That to be ruled out. We'll continue monitor the rhythm #3 the patient apparently converted to normal sinus mechanism. I'm going to DC the Cardizem IV and start the patient on beta manuel #4 consider oral anticoagulation in the next 24 hours #5 follow-up with the patient #6 obtain TSH and free T4 Thank you for allowing us participate in her care
[2021-11-22] MEDS ORDERED: METOPROLOL SUCCINATE (ER) 25 MG TAB.ER.24H PO STA (11:52)
[2021-11-22] MEDS: REMDESIVIR 100 MG in SODIUM CHLORIDE 0.9% 250 ML IVPB SCH (12:10)
[2021-11-22] MEDS ORDERED: POTASSIUM CHLORIDE ER 20 MEQ TAB.ER PO STA (14:51)
--- NOTE | 2021-11-22 15:52 | P.PN ---
Subjective Progress Note Date: 11/22/21 71-year-old pleasant female came in with complaints of loss of consciousness and Jasmine's weakness and fatigue. Patient is found to have Covid 19. When questioned patient was having symptoms of cough and generalized fatigue going on for about 2 weeks. Patient does have mild infiltrate on the chest x-ray. Patient is presently saturating borderline 91% because of which I'll monitor 1 more night. Patient did receive Monocryl antibody infusion yesterday patient does have high-grade fever of 101. Patient blood pressures borderline low normal. Echo was ordered patient is on both amlodipine and the LAURA inhibitor amlodipine is being discontinued can you with LAURA inhibitor at this time. Patient feels better today. Patient was bit hyponatremic which improved at this time. 11/21/2021 Patient the is requiring oxygen today because of which I'm start her on Decadron and pulmonary will be consulted. 11/22/2021 Patient is seen in follow-up and continues on 4 L via nasal cannula with shortness of breath with exertion. Patient also continues on oral dexamethasone long with vitamin zinc supplements and maintained on subcutaneous Lovenox which is being increased to twice daily along with Remdesivir with infectious disease following closely. Cardiology was also consulted and patient had gone into A. fib with RVR and placed on IV Cardizem. Patient has since converted and being transitioned to oral metoprolol and will be continued on Lovenox for anticoagulation. Labs: Sodium is 140, potassium is 3.4, BUN is 15, creatinine is 0.5 to, magnesium is 2.2, TSH is 0.247, free T4 is 1.35 Review of systems: Constitutional: Denied any fatigue denied any fever. Cardiovascular: denied any chest pain, palpitations Gastrointestinal denied any nausea vomiting Pulmonary: As mentioned in HPI Neurologic denied any new focal deficits All inpatient medications were reviewed and appropriate changes in these medications as dictated in the interval history and assessment and plan. Active Medications Acetaminophen (Acetaminophen Tab 325 Mg Tab) 650 mg PO Q6HR PRN PRN Reason: Mild Pain or Fever > 100.5 Last Admin: 11/20/21 08:14 Dose: 650 mg Documented by: Ascorbic Acid (Ascorbic Acid 500 Mg Tab) 500 mg PO BID [facility] Last Admin: 11/22/21 08:14 Dose: 500 mg Documented by: Aspirin (Aspirin 81 Mg) 81 mg PO DAILY [facility] Last Admin: 11/22/21 08:14 Dose: 81 mg Documented by: Dexamethasone (Dexamethasone 2 Mg Tab) 6 mg PO DAILY [facility] Last Admin: 11/22/21 08:14 Dose: 6 mg Documented by: Enoxaparin Sodium (Enoxaparin 40 Mg/0.4 Ml Syringe) 40 mg SQ Q12HR [facility] Famotidine (Famotidine 20 Mg Tab) 20 mg PO BID [facility] Last Admin: 11/22/21 08:14 Dose: 20 mg Documented by: Sodium Chloride (Saline 0.9%) 1,000 mls @ 75 mls/hr IV .[id number] [facility] Last Admin: 11/21/21 20:36 Dose: 75 mls/hr Documented by: Remdesivir 100 mg/ Sodium (Chloride) 250 mls @ 250 mls/hr IVPB Q24H [facility] Stop: 11/25/21 12:59 Last Admin: 11/22/21 12:10 Dose: 250 mls/hr Documented by: Lisinopril (Lisinopril 20 Mg Tab) 20 mg PO DAILY [facility] Last Admin: 11/22/21 08:14 Dose: 20 mg Documented by: Metoprolol Succinate (Metoprolol Succinate (Er) 25 Mg Tab.Er.24h) 25 mg PO DAILY [facility] Miscellaneous Information (Potassium Replacement Protocol 1 Each Misc) 1 each MISCELLANE DAILY PRN; Protocol PRN Reason: Per Protocol Naloxone HCl (Naloxone 0.4 Mg/Ml 1 Ml Vial) 0.2 mg IV Q2M PRN PRN Reason: Opioid Reversal Zinc Sulfate (Zinc Sulfate 220 Mg Cap) 220 mg PO DAILY [facility] Last Admin: 11/22/21 08:14 Dose: 220 mg Documented by: PHYSICAL EXAMINATION: GENERAL: The patient is alert and oriented x3, not in any acute distress. Well developed, well nourished. HEENT: Pupils are round and equally reacting to light. EOMI. No scleral icterus. No conjunctival pallor. Normocephalic, atraumatic. No pharyngeal erythema. No thyromegaly. CARDIOVASCULAR: S1 and S2 present. No murmurs, rubs, or gallops. PULMONARY: Chest is clear to auscultation, no wheezing or crackles. ABDOMEN: Soft, nontender, nondistended, normoactive bowel sounds. No palpable organomegaly. MUSCULOSKELETAL: No joint swelling or deformity. EXTREMITIES: No cyanosis, clubbing, or pedal edema. NEUROLOGICAL: Gross neurological examination did not reveal any focal deficits. SKIN: No rashes. Assessment: -Syncope: Secondary to Covid 19 infection patient received IV fluids and will continue -Atrial fibrillation with RVR, new onset, cardiology consulted and placed on IV Cardizem and increase Lovenox to twice daily and has since converted this morning and transitioned oral metoprolol and Cardizem was discontinued -Acute hypoxic respiratory failure secondary to covid 19 , will consult pulmonary and patient is maintained on 4 L via nasal cannula -Covid 19 infection and pneumonia, infectious disease following patient is maintained on oral dexamethasone along with vitamin and zinc supplements, Lovenox twice daily, and receiving REmdesivir -Hypertension -DVT prophylaxis: Lovenox twice daily -Full code Plan: Recommend continue with current medications and gentle IV hydration will repeat labs. Patient with new onset atrial fibrillation RVR currently sinus rhythm and has converted with cardiology following and placed on metoprolol and will continue with Lovenox. IV Cardizem has been discontinued. Infectious disease is following and given the patient is now requiring oxygen at 4 L will consult p rosa and appreciate input and recommendations. Objective - Vital Signs Vital signs: Vital Signs Temp 97.4 F L 11/22/21 07:00 Pulse 69 11/22/21 07:00 Resp 18 11/22/21 07:00 BP 110/77 11/22/21 07:00 Pulse Ox 91 L 11/22/21 07:00 Intake & Output 11/21/21 11/22/21 11/22/21 18:59 06:59 18:59 Intake Total 420 Balance 420 Intake: Oral 420 Other: Voiding Method Toilet # Voids 1 - Labs CBC & Chem 7: 11/20/21 06:06 11/22/21 07:46 Labs: Abnormal Lab Results - Last 24 Hours (Table) 11/22/21 Range/Units 07:46 Potassium 3.4 L (3.5-5.1) mmol/L Chloride 113 H (98-107) mmol/L Carbon Dioxide 21 L (22-30) mmol/L Glucose 138 H (74-99) mg/dL Calcium 8.2 L (8.4-10.2) mg/dL TSH 0.247 L (0.465-4.680) mIU/L
[2021-11-22] MEDS ORDERED: guaiFENesin-DM 100-10MG/5ML 10 ML CUP PO PRN (21:01)
[2021-11-22] MEDS: SODIUM CHLORIDE 0.9% 1,000 ML IV SCH (23:03)
--- NOTE | 2021-11-22 23:51 | PN ---
PROGRESS NOTE DATE OF SERVICE: 11/22/2021 REASON FOR FOLLOWUP: COVID-19 pneumonia. INTERVAL HISTORY: The patient is afebrile. The patient is breathing slightly comfortably. The patient denies having any chest pain. She did have a cough, not bringing up any sputum. No abdominal pain or diarrhea. PHYSICAL EXAMINATION: Blood pressure is 129/69 with a pulse of 61, temperature 97.5. She is 93% on 5 L nasal cannula. General description is an elderly female lying in bed in no distress. Respiratory system: Unlabored breathing, decreased intensity of breath sounds. No wheeze. Heart S1, S2. Regular rate and rhythm. Abdomen soft, no tenderness. LABS: Creatinine is 0.52. No CBC was done today. DIAGNOSTIC IMPRESSION AND PLAN: Patient with acute COVID-19 pneumonia in this patient currently covered with remdesivir, dexamethasone, zinc and ascorbic acid; to continue. The patient's fever has responded. Respiratory status will be monitored closely. Continue with supportive care. MMODL / IJN: [id number] /
[2021-11-23] MEDS: SODIUM CHLORIDE 0.9% 1,000 ML IV SCH ×2 (03:44→22:07)
--- NOTE | 2021-11-23 09:01 | US ---
EXAMINATION TYPE: US venous doppler duplex LE DATE OF EXAM: 11/23/2021 8:13 AM COMPARISON: NONE CLINICAL HISTORY: CoVID, elevated d-dimer. SIDE PERFORMED: Bilateral TECHNIQUE: The lower extremity deep venous system is examined utilizing real time linear array sonog konrad with graded compression, doppler sonography and color-flow sonography. VESSELS IMAGED: Common Femoral Vein Deep Femoral Vein Greater Saphenous Vein * Femoral Vein Popliteal Vein Small Saphenous Vein * Proximal Calf Veins (* superficial vessels) Right Leg: Negative for DVT Left Leg: Negative for DVT IMPRESSION: Grayscale, color doppler, spectral doppler imaging performed of the deep veins of the lo wer extremities. There is normal flow, compressibility, vascular waveforms.
[2021-11-23] MEDS: ASCORBIC ACID 500 MG TAB PO SCH ×2 (09:41→22:03)
[2021-11-23] MEDS: METOPROLOL SUCCINATE (ER) 25 MG TAB.ER.24H PO SCH (09:41)
[2021-11-23] MEDS: ZINC SULFATE 220 MG CAP PO SCH (09:41)
[2021-11-23] MEDS: FAMOTIDINE 20 MG TAB PO SCH ×2 (09:41→22:03)
[2021-11-23] MEDS: dexAMETHasone 2 MG TAB PO SCH (09:41)
[2021-11-23] MEDS: ENOXAPARIN 40 MG/0.4 ML SYRINGE SQ SCH (09:42)
[2021-11-23] MEDS: lisinopriL 20 MG TAB PO SCH (09:42)
[2021-11-23] MEDS: ASPIRIN 81 MG PO SCH (09:42)
--- NOTE | 2021-11-23 10:17 | P.PN ---
Subjective Progress Note Date: 11/23/21 Principal diagnosis: Paroxysmal atrial fibrillation The patient is a 71-year-old female patient who was admitted to the hospital with COVID-19 infection/pneumonia and she went into atrial fibrillation with RVR which was a new diagnosis the patient. She has been maintaining normal sinus mechanism. I'm going to start the patient on oral anticoagulation with was and DC Lovenox. She was seen earlier by the pulmonary service and there is a concern about PE and currently she is in process of having the computed tomography scan of the chest. She continues to be hypoxic and requiring high flow oxygen. The echo showed normal left ventricular systolic function. Objective - Vital Signs Vital signs: Vital Signs Temp 97.7 F 11/23/21 08:00 Pulse 71 11/23/21 08:00 Resp 16 11/23/21 08:00 BP 144/74 11/23/21 08:00 Pulse Ox 94 L 11/23/21 08:58 Intake & Output 11/22/21 11/23/21 11/23/21 18:59 06:59 18:59 Intake Total 300 Output Total 0 Balance 300 0 Intake: Oral 300 Output: Urine 0 Other: Voiding Method Toilet # Voids 1 2 - Constitutional General appearance: Present: no acute distress - Labs CBC & Chem 7: 11/20/21 06:06 11/22/21 07:46 Assessment and Plan Assessment: Assessment #1 COVID-19 infection #2 syncopal episode #3 A. fib with RVR. This is a newly diagnosis of the patient. Plan #1 the patient is in process of having the computed tomography scan to rule out PE #2 DC Lovenox and start the patient on oral anticoagulation. #3 adjust the dose of oral anticoagulation if she turns to have a PE #4 the echo showed normal LV function
--- NOTE | 2021-11-23 11:53 | P.PN ---
Subjective 71-year-old pleasant female came in with complaints of loss of consciousness and Jasmine's weakness and fatigue. Patient is found to have Covid 19. When questioned patient was having symptoms of cough and generalized fatigue going on for about 2 weeks. Patient does have mild infiltrate on the chest x-ray. Patient is presently saturating borderline 91% because of which I'll monitor 1 more night. Patient did receive Monocryl antibody infusion yesterday patient does have high-grade fever of 101. Patient blood pressures borderline low normal. Echo was ordered patient is on both amlodipine and the LAURA inhibitor amlodipine is being discontinued can you with LAURA inhibitor at this time. Patient feels better today. Patient was bit hyponatremic which improved at this time. 11/21/2021 Patient the is requiring oxygen today because of which I'm start her on Decadron and pulmonary will be consulted. 11/22/2021 Patient is seen in follow-up and continues on 4 L via nasal cannula with shortness of breath with exertion. Patient also continues on oral dexamethasone long with vitamin zinc supplements and maintained on subcutaneous Lovenox which is being increased to twice daily along with Remdesivir with infectious disease following closely. Cardiology was also consulted and patient had gone into A. fib with RVR and placed on IV Cardizem. Patient has since converted and being transitioned to oral metoprolol and will be continued on Lovenox for anticoagulation. Labs: Sodium is 140, potassium is 3.4, BUN is 15, creatinine is 0.5 to, magnesium is 2.2, TSH is 0.247, free T4 is 1.35 11/23/2021 Patient feels better but the patient is still requiring several liters of oxygen. Patient the did undergo CT angios the chest results of which are still pending. Patient has new onset atrial fibrillation for which patient was started on Eliquis. Review of systems: Constitutional: Denied any fatigue denied any fever. Cardiovascular: denied any chest pain, palpitations Gastrointestinal denied any nausea vomiting Pulmonary: As mentioned in HPI Neurologic denied any new focal deficits All inpatient medications were reviewed and appropriate changes in these medications as dictated in the interval history and assessment and plan. PHYSICAL EXAMINATION: GENERAL: The patient is alert and oriented x3, not in any acute distress. Well developed, well nourished. HEENT: Pupils are round and equally reacting to light. EOMI. No scleral icterus. No conjunctival pallor. Normocephalic, atraumatic. No pharyngeal erythema. No thyromegaly. CARDIOVASCULAR: S1 and S2 present. No murmurs, rubs, or gallops. PULMONARY: Chest is clear to auscultation, no wheezing or crackles. ABDOMEN: Soft, nontender, nondistended, normoactive bowel sounds. No palpable organomegaly. MUSCULOSKELETAL: No joint swelling or deformity. EXTREMITIES: No cyanosis, clubbing, or pedal edema. NEUROLOGICAL: Gross neurological examination did not reveal any focal deficits. SKIN: No rashes. Assessment: -Syncope: Secondary to Covid 19 infection patient received IV fluids and will continue -Atrial fibrillation with RVR, new onset, patient was started on anti- correlation patient is presently rate controlled. -Acute hypoxic respiratory failure secondary to covid 19 , etiology of the chest is being up and patient is presently on 7 L of oxygen -Covid 19 infection and pneumonia, infectious disease following patient is maintained on oral dexamethasone along with vitamin and zinc supplements, Lovenox twice daily, and receiving REmdesivir -Hypertension -DVT prophylaxis: Lovenox twice daily -Full code Objective - Vital Signs Vital signs: Vital Signs Temp 97.7 F 11/23/21 08:00 Pulse 71 11/23/21 08:00 Resp 16 11/23/21 08:00 BP 144/74 11/23/21 08:00 Pulse Ox 94 L 11/23/21 08:58 Intake & Output 11/22/21 11/23/21 11/23/21 18:59 06:59 18:59 Intake Total 300 Output Total 0 Balance 300 0 Intake: Oral 300 Output: Urine 0 Other: Voiding Method Toilet Toilet # Voids 1 2 - Labs CBC & Chem 7: 11/20/21 06:06 11/22/21 07:46
--- NOTE | 2021-11-23 12:51 | CT ---
EXAMINATION TYPE: CT angio chest DATE OF EXAM: 11/23/2021 COMPARISON: Chest x-ray 11/19/2021 HISTORY: covid pneumonia, elevated dimer, abnormal chest x-ray CT DLP: 511 mGycm Automated exposure control for dose reduction was used. CONTRAST: CTA scan of the thorax is performed with IV Contrast, patient injected with 100 mL of Isovue 370, pul monary embolism protocol. MIP images are created and reviewed. 3D reconstructed images are created on an independent workstation and reviewed. FINDINGS: LUNGS: The lungs are showing progression in bilateral airspace disease. Small bilateral pleural effus ions are present with some associated atelectasis. There is no pneumothorax seen. The tracheobronch ial tree is patent. AORTA: No additional significant abnormality is seen. MEDIASTINUM: There is satisfactory enhancement of the pulmonary artery and its branches, there is no CT evidence for pulmonary embolism. There are no greater than 1 cm hilar or mediastinal lymph nodes. No pericardial effusion is seen. There is a hiatal hernia. OTHER: No additional significant abnormality is seen. IMPRESSION: FINDINGS CONSISTENT WITH COVID PNEUMONIA. NO EVIDENT PULMONARY EMBOLUS.
[2021-11-23] MEDS: REMDESIVIR 100 MG in SODIUM CHLORIDE 0.9% 250 ML IVPB SCH (13:38)
--- NOTE | 2021-11-23 14:04 | P.CNPUL ---
History of Present Illness Consult date: 11/23/21 Requesting physician: Ezra Munguia Reason for consult: dyspnea, hypoxemia, abnormal CXR/CT Chief complaint: Syncope History of present illness: This is a pleasant 71-year-old female patient with a known history of hypertension. For the past 10 days she's been having issues with shortness of breath, cough congestion fever. Prior to her arrival on 11/19/2021 she was in her kitchen making a cup of coffee when she suddenly passed out. Upon awakening she was able to call out to her son and was brought in by EMS. Echocardiogram revealed preserved left ventricular systolic function with ejection fraction 50- 55%. White count 2.5. Hemoglobin 12.4. Platelet count 86,000. Lymphocytes 0.25. D-dimer 0.94. Sodium 140. Potassium 3.4. Creatinine 0.52. TSH 0.247. Free T4 1 0.35. She was positive for COVID-19. Dopplers of the lower extremity were negative for DVT. CT angiogram ruled out pulmonary embolism. There is findings consistent with COVID-19 pneumonia. She is seen today in consultation on the regular medical floor. She is currently sitting up in bed. Awake and alert in no acute distress. She has had also developed new onset atrial fibrillation with rapid ventricular response. She was initially on a Cardizem drip. Heart rate better controlled today. She is requiring 6 L high flow nasal cannula to maintain O2 saturation in the 90s. She's been initiated on Remdesivir per ID services. Continued on Decadron. Anticoagulated with Eliquis. On vitamin supplements. Review of Systems REVIEW OF SYSTEMS: CONSTITUTIONAL: Denies any recent significant weight loss or weight gain. EYES: Denies change in vision. EARS, NOSE, MOUTH, THROAT: Denies headaches, denies sore throat. CARDIOVASCULAR: Positive for syncopal episodes. RESPIRATORY: As before shortness of breath, cough, congestion no hemoptysis. GASTROINTESTINAL: Denies change in appetite, denies abdominal pain GENITOURINARY: Denies hematuria, denies infections. MUSKULOSKELETAL: Denies pain, denies swelling. INTEGUMENTARY: Denies rash, denies eczema. NEUROLOGICAL: Denies recent memory loss, no recent seizure activity. PSYCHIATRIC: Denies anxiety, denies depression. HEMATOLOGIC/LYMPHATIC: Denies anemia, denies enlarged lymph nodes. Past Medical History Past Medical History: Cancer, Hyperlipidemia, Hypertension Additional Past Medical History / Comment(s): Hx Cervical Cancer 1996. Arthritis, carpal tunnel left hand. History of Any Multi-Drug Resistant Organisms: None Reported Past Surgical History: Orthopedic Surgery Additional Past Surgical History / Comment(s): Cysts removed from wrist and right breast, colonoscopy, D&C. Right shoulder surgery. Past Anesthesia/Blood Transfusion Reactions: No Reported Reaction Past Psychological History: No Psychological Hx Reported Smoking Status: Former smoker Past Alcohol Use History: Occasional Additional Past Alcohol Use History / Comment(s): Quit smoking 40 yrs ago. Pt states she drinks 3 drinks/day. Past Drug Use History: None Reported - Past Family History Mother Family Medical History: No Reported History Medications and Allergies Home Medications Medication Instructions Recorded Confirmed Type Aspirin 81 mg PO DAILY 09/12/21 11/19/21 History amLODIPine BESYLATE/BENAZEPRIL 1 tab PO DAILY 09/12/21 11/19/21 History [amLODIPine BESYLATE/BENAZEPRIL 5-20 MG] Ibuprofen [Motrin Ib] 400 mg PO Q8H PRN 11/19/21 11/19/21 History Allergies Allergy/AdvReac Type Severity Reaction Status Date / Time codeine AdvReac nausea, Verified 11/19/21 17:15 [From Tylenol-Codeine] vomiting Physical Exam Vitals: Vital Signs Temp Pulse Resp BP BP Pulse Ox 11/23/21 08:58 94 L 11/23/21 08:07 94 L 11/23/21 08:00 97.7 F 71 16 144/74 94 L 11/23/21 07:40 97.7 F 71 16 144/74 94 L 11/23/21 00:39 97.4 F L 71 18 148/72 91 L 11/23/21 00:09 90 L 11/22/21 20:00 97.5 F L 61 18 129/69 93 L 11/22/21 18:20 94 L 11/22/21 18:10 87 L 11/22/21 14:47 97.7 F 68 18 126/72 93 L Intake and Output 11/22/21 11/23/21 11/23/21 22:59 06:59 14:59 Intake Total 120 Output Total 0 Balance 120 Intake: Oral 120 Output: Urine 0 Other: Voiding Method Toilet Toilet # Voids 2 GENERAL EXAM: Alert, very pleasant 71-year-old female patient, on 6 L high flow nasal cannula comfortable in no apparent distress. HEAD: Normocephalic. EYES: Normal reaction of pupils, equal size. NOSE: Clear with pink turbinates. THROAT: No erythema or exudates. NECK: No masses, no JVD. CHEST: No chest wall deformity. LUNGS: Equal air entry with crackles in the bilateral posterior bases CVS: S1 and S2 normal with no audible murmur, regular rhythm. ABDOMEN: No hepatosplenomegaly, normal bowel sounds, no guarding or rigidity. SPINE: No scoliosis or deformity SKIN: No rashes CENTRAL NERVOUS SYSTEM: No focal deficits, tone is normal in all 4 extremities. EXTREMITIES: There is no peripheral edema. No clubbing, no cyanosis. Peripheral pulses are intact. Results - Laboratory Findings CBC and BMP: 11/20/21 06:06 11/22/21 07:46 PT/INR, D-dimer PT 10.1 sec (9.0-12.0) 11/19/21 16:37 INR 0.9 (<1.2) 11/19/21 16:37 D-Dimer 0.94 mg/L FEU (<0.60) H 11/20/21 14:31 Abnormal lab findings: Abnormal Labs 11/19/21 11/19/21 11/19/21 16:37 16:37 16:37 WBC 2.1 L MCHC Plt Count 103 L Plt Count Comment Lymphocytes # 0.3 L Monocytes # Eosinophils # APTT 21.7 L D-Dimer Sodium 135 L Potassium 3.4 L Chloride Carbon Dioxide BUN 18 H Glucose 119 H Calcium AST 70 H ALT 35 H TSH Coronavirus (PCR) 11/19/21 11/20/21 11/20/21 17:23 06:06 06:06 WBC 2.54 L MCHC 31.8 L Plt Count 86 L Plt Count Comment DECREASED A Lymphocytes # 0.25 L Monocytes # 0.11 L Eosinophils # 0 L APTT D-Dimer Sodium Potassium Chloride 110 H Carbon Dioxide 18.4 L BUN Glucose Calcium 8.0 L AST ALT TSH Coronavirus (PCR) Detected A 11/20/21 11/22/21 14:31 07:46 WBC MCHC Plt Count Plt Count Comment Lymphocytes # Monocytes # Eosinophils # APTT D-Dimer 0.94 H Sodium Potassium 3.4 L Chloride 113 H Carbon Dioxide 21 L BUN Glucose 138 H Calcium 8.2 L AST ALT TSH 0.247 L Coronavirus (PCR) - Diagnostic Findings Chest x-ray: image reviewed CT scan - chest: image reviewed Assessment and Plan Assessment: 1 Syncopal episode possibly related to new onset atrial fibrillation, possibly related to hypoxemia 2 Acute hypoxemic respiratory failure secondary to COVID-19 pneumonia. Not vaccinated. Initiated on Remdesivir per ID services. Symptoms 10 days out. 3 Hypertension 4 New-onset atrial fibrillation, anticoagulated with Eliquis Plan: The patient was seen and evaluated CAT scan ruled out pulmonary embolism Continued on Remdesivir, Eliquis, vitamin supplements Titrate down the FiO2 as tolerated Follow-up labs in the a.m. We'll continue to follow and make further recommendations based on her clinical status I, the cosigning physician, performed a history & physical examination of the patient. Lungs sounds with crackles in the bilateral bases. Maintaining good O2 saturations in the 90s on 6 L high flow nasal cannula I discussed the assessmen t and plan of care with my nurse practitioner, Zohra Mcmahon. I attest to the above consultation as dictated by her. Time with Patient: Greater than 30
[2021-11-23] MEDS: APIXABAN 5 MG TAB PO SCH (22:03)
--- NOTE | 2021-11-23 23:19 | PN ---
PROGRESS NOTE DATE OF SERVICE: 11/23/2021 REASON FOR FOLLOWUP: COVID-19 pneumonia. INTERVAL HISTORY: The patient is afebrile. The patient is breathing slightly comfortably; however, she is requiring more supplemental oxygen. The patient denies having any chest pain. No worsening cough or sputum production. No abdominal pain or diarrhea. PHYSICAL EXAMINATION: Blood pressure 142/69, pulse of 66, temperature 97.7. She is 91% on 7 L nasal cannula. General description is an elderly female up in the bed in no distress. Respiratory system: Unlabored breathing, decreased intensity of breath sounds. No wheeze. Heart S1, S2. Regular rate and rhythm. Abdomen soft, no tenderness. LABS: D-dimer is 0.94, creatinine 0.52. DIAGNOSTIC IMPRESSION AND PLAN: Patient with acute COVID-19 pneumonia in this patient with slight worsening of her respiratory status, for which the patient did have a CT angiogram that was negative for PE. It shows evidence of COVID pneumonia. Patient to continue with remdesivir to finish her five-day course of therapy. To continue with dexamethasone, Eliquis, zinc and ascorbic acid, incentive spirometry and respiratory support. MMODL / IJN: [id number] /
[2021-11-24] MEDS: SODIUM CHLORIDE 0.9% 1,000 ML IV SCH (03:57)
[2021-11-24] MEDS: ASCORBIC ACID 500 MG TAB PO SCH ×2 (08:41→19:31)
[2021-11-24] MEDS: dexAMETHasone 2 MG TAB PO SCH (08:41)
[2021-11-24] MEDS: ZINC SULFATE 220 MG CAP PO SCH (08:41)
[2021-11-24] MEDS: ASPIRIN 81 MG PO SCH (08:41)
[2021-11-24] MEDS: FAMOTIDINE 20 MG TAB PO SCH ×2 (08:41→19:31)
[2021-11-24] MEDS: METOPROLOL SUCCINATE (ER) 25 MG TAB.ER.24H PO SCH (08:41)
[2021-11-24] MEDS: lisinopriL 20 MG TAB PO SCH (08:41)
[2021-11-24 10:08] LABS: C Reactive Protein 1.8 mg/dL (0.00-0.80)
--- NOTE | 2021-11-24 10:25 | P.PN ---
Subjective 71-year-old pleasant female came in with complaints of loss of consciousness and June's weakness and fatigue. Patient is found to have Covid 19. When questioned patient was having symptoms of cough and generalized fatigue going on for about 2 weeks. Patient does have mild infiltrate on the chest x-ray. Patient is presently saturating borderline 91% because of which I'll monitor 1 more night. Patient did receive Monocryl antibody infusion yesterday patient does have high-grade fever of 101. Patient blood pressures borderline low normal. Echo was ordered patient is on both amlodipine and the LAURA inhibitor amlodipine is being discontinued can you with LAURA inhibitor at this time. Patient feels better today. Patient was bit hyponatremic which improved at this time. 11/21/2021 Patient the is requiring oxygen today because of which I'm start her on Decadron and pulmonary will be consulted. 11/22/2021 Patient is seen in follow-up and continues on 4 L via nasal cannula with shortness of breath with exertion. Patient also continues on oral dexamethasone long with vitamin zinc supplements and maintained on subcutaneous Lovenox which is being increased to twice daily along with Remdesivir with infectious disease following closely. Cardiology was also consulted and patient had gone into A. fib with RVR and placed on IV Cardizem. Patient has since converted and being transitioned to oral metoprolol and will be continued on Lovenox for anticoagulation. Labs: Sodium is 140, potassium is 3.4, BUN is 15, creatinine is 0.5 to, magnesium is 2.2, TSH is 0.247, free T4 is 1.35 11/23/2021 Patient feels better but the patient is still requiring several liters of oxygen. Patient the did undergo CT angios the chest results of which are still pending. Patient has new onset atrial fibrillation for which patient was started on Eliquis. 11/24/2021 Patient overall feels better. Carotids and requirements are bit better patient is saturating very well and I liters we can taper it down even more if we're able to bring it down to 5 L patient will be discharged at that time IV fluids will be discontinued will obtain basic metabolic profile and CBC tomorrow and the her d-dimer is elevated to 1.6 patient is already on Eliquis.CT A no PE Review of systems: Constitutional: Denied any fatigue denied any fever. Cardiovascular: denied any chest pain, palpitations Gastrointestinal denied any nausea vomiting Pulmonary: As mentioned in HPI Neurologic denied any new focal deficits All inpatient medications were reviewed and appropriate changes in these medications as dictated in the interval history and assessment and plan. PHYSICAL EXAMINATION: GENERAL: The patient is alert and oriented x3, not in any acute distress. Well developed, well nourished. HEENT: Pupils are round and equally reacting to light. EOMI. No scleral icterus. No conjunctival pallor. Normocephalic, atraumatic. No pharyngeal erythema. No th yromegaly. CARDIOVASCULAR: S1 and S2 present. No murmurs, rubs, or gallops. PULMONARY: Chest is clear to auscultation, no wheezing or crackles. ABDOMEN: Soft, nontender, nondistended, normoactive bowel sounds. No palpable organomegaly. MUSCULOSKELETAL: No joint swelling or deformity. EXTREMITIES: No cyanosis, clubbing, or pedal edema. NEUROLOGICAL: Gross neurological examination did not reveal any focal deficits. SKIN: No rashes. Assessment: -Syncope: Secondary to Covid 19 infection patient received IV fluids and will continue -Atrial fibrillation with RVR, new onset, patient was started on anti- correlation patient is presently rate controlled. -Acute hypoxic respiratory failure secondary to covid 19 , etiology of the chest is being up and patient is presently on 9 L of oxygen -Covid 19 infection and pneumonia, infectious disease following patient is maintained on oral dexamethasone along with vitamin and zinc supplements, Lovenox twice daily, and receiving REmdesivir -Hypertension -DVT prophylaxis: Lovenox twice daily -Full code Objective - Vital Signs Vital signs: Vital Signs Temp 97.8 F 11/24/21 08:00 Pulse 72 11/24/21 08:00 Resp 17 11/24/21 08:00 BP 148/74 11/24/21 08:00 Pulse Ox 97 11/24/21 08:00 Intake & Output 11/23/21 11/24/21 11/24/21 18:59 06:59 18:59 Output Total 300 Balance -300 Output: Urine 300 Other: Voiding Method Toilet Toilet # Voids 1 2 - Labs CBC & Chem 7: 11/20/21 06:06 11/22/21 07:46 Labs: Abnormal Lab Results - Last 24 Hours (Table) 11/24/21 11/24/21 Range/Units 06:45 06:45 D-Dimer 1.61 H (<0.60) mg/L FEU Lactate Dehydrogenase 292 H (120-246) U/L C-Reactive Protein 1.80 H (0.00-0.80) mg/dL
--- NOTE | 2021-11-24 11:14 | P.PN ---
Subjective Progress Note Date: 11/24/21 Principal diagnosis: Syncope, COVID-19 pneumonia This is a pleasant 71-year-old female patient with a known history of hypertension. For the past 10 days she's been having issues with shortness of breath, cough congestion fever. Prior to her arrival on 11/19/2021 she was in her kitchen making a cup of coffee when she suddenly passed out. Upon awakening she was able to call out to her son and was brought in by EMS. Echocardiogram revealed preserved left ventricular systolic function with ejection fraction 50- 55%. White count 2.5. Hemoglobin 12.4. Platelet count 86,000. Lymphocytes 0.25. D-dimer 0.94. Sodium 140. Potassium 3.4. Creatinine 0.52. TSH 0.247. Free T4 1 0.35. She was positive for COVID-19. Dopplers of the lower extremity were negative for DVT. CT angiogram ruled out pulmonary embolism. There is findings consistent with COVID-19 pneumonia. She is seen today in consultation on the regular medical floor. She is currently sitting up in bed. Awake and alert in no acute distress. She has had also developed new onset atrial fibrillation with rapid ventricular response. She was initially on a Cardizem drip. Heart rate better controlled today. She is requiring 6 L high flow nasal cannula to maintain O2 saturation in the 90s. She's been initiated on Remdesivir per ID services. Continued on Decadron. Anticoagulated with Eliquis. On vitamin supplements. The patient is seen today 11/24/2021 in follow-up on the regular medical floor. She is currently sitting up in bed. Awake and alert in no acute distress. Breathing a bit easier today compared to yesterday. Requiring 9 L high flow nasal cannula to maintain O2 saturations in the 90s. She's afebrile. Hemodynamically stable. D-dimer 1.61. LDH 292. C-reactive protein 1.80. This is day #4 of Remdesivir. She is continued on Eliquis, Decadron, vitamin supplements. She remains in sinus rhythm. Objective - Vital Signs Vital signs: Vital Signs Temp 97.8 F 11/24/21 08:00 Pulse 72 11/24/21 08:00 Resp 17 11/24/21 08:00 BP 148/74 11/24/21 08:00 Pulse Ox 97 11/24/21 08:00 Intake & Output 11/23/21 11/24/21 11/24/21 18:59 06:59 18:59 Output Total 300 Balance -300 Output: Urine 300 Other: Voiding Method Toilet Toilet Toilet # Voids 1 2 - Exam GENERAL EXAM: Alert, very pleasant 71-year-old female patient, on 9 L high flow nasal cannula, comfortable in no apparent distress. HEAD: Normocephalic. EYES: Normal reaction of pupils, equal size. NOSE: Clear with pink turbinates. THROAT: No erythema or exudates. NECK: No masses, no JVD. CHEST: No chest wall deformity. LUNGS: Equal air entry with crackles in the bilateral posterior bases CVS: S1 and S2 normal with no audible murmur, regular rhythm. ABDOMEN: No hepatosplenomegaly, normal bowel sounds, no guarding or rigidity. SPINE: No scoliosis or deformity SKIN: No rashes CENTRAL NERVOUS SYSTEM: No focal deficits, tone is normal in all 4 extremities. EXTREMITIES: There is no peripheral edema. No clubbing, no cyanosis. Peripheral pulses are intact. - Labs CBC & Chem 7: 11/20/21 06:06 11/22/21 07:46 Labs: Abnormal Lab Results - Last 24 Hours (Table) 11/24/21 11/24/21 Range/Units 06:45 06:45 D-Dimer 1.61 H (<0.60) mg/L FEU Lactate Dehydrogenase 292 H (120-246) U/L C-Reactive Protein 1.80 H (0.00-0.80) mg/dL Assessment and Plan Assessment: 1 Syncopal episode possibly related to new onset atrial fibrillation, possibly related to hypoxemia 2 Acute hypoxemic respiratory failure secondary to COVID-19 pneumonia. Not vaccinated. Initiated on Remdesivir per ID services. Symptoms 10 days out. 3 Hypertension 4 New-onset atrial fibrillation, anticoagulated with Eliquis Plan: The patient was seen and evaluated Requiring a bit more oxygen today compared to yesterday Currently at 9 L high flow nasal cannula Continued on day #4 Remdesivir Remains on Eliquis, Decadron, vitamin supplements Remains in sinus rhythm Titrate down the FiO2 as tolerated We'll continue to follow I, the cosigning physician, performed a history & physical examination of the patient. Lungs sounds with crackles in the bilateral bases. Maintaining good O2 saturations in the 90s on 9 L high flow nasal cannula I discussed the assessment and plan of care with my nurse practitioner, Zohra Mcmahon. I attest to the above note as dictated by her.
[2021-11-24] MEDS: REMDESIVIR 100 MG in SODIUM CHLORIDE 0.9% 250 ML IVPB SCH (12:03)
--- NOTE | 2021-11-24 13:50 | PN ---
PROGRESS NOTE Mrs. Dia was admitted with COVID pneumonia. She seems to have recovered. She is currently on oxygen. There was a question of pulmonary embolism, and yesterday she had a CT angio which revealed no evidence of pulmonary embolism. She has paroxysmal atrial fibrillation, now in sinus rhythm. I am suggesting that we continue Eliquis 5 mg b.i.d., discontinue aspirin, increase her activity and, from a cardiac standpoint no other intervention is necessary. Patient can be discharged whenever okay by her admitting doctor and hatchery man. Vitals are stable. She is maintaining sinus rhythm. Has improved shortness of breath. No chest discomfort. From a cardiac standpoint, we will see her as needed, but I am suggesting that we discontinue aspirin and continue Eliquis 5 mg b.i.d. in view of her atrial fibrillation. MMODL / IJN: [id number] /
[2021-11-24] MEDS: APIXABAN 5 MG TAB PO SCH (19:31)
--- NOTE | 2021-11-24 19:41 | PN ---
PROGRESS NOTE DATE OF SERVICE: 11/24/2021 REASON FOR FOLLOWUP: COVID-19 pneumonia. INTERVAL HISTORY: The patient is afebrile. The patient is breathing slightly comfortably. The patient is now down back to 7 L nasal cannula. The patient denies having any chest pain. No worsening cough or sputum production. No abdominal pain or diarrhea. PHYSICAL EXAMINATION: Blood pressure 142/77 with a pulse of 71, temperature 97.7. She is 97% on 7 L nasal cannula. General description is an elderly female up in the bed in no distress. Respiratory system: Unlabored breathing. Coarse breath sounds in the bases. No wheeze. Heart S1, S2. Regular rate and rhythm. Abdomen soft, no tenderness. LABS: D-dimer is 1.61. CRP is 1.80. DIAGNOSTIC IMPRESSION AND PLAN: Patient with acute COVID-19 pneumonia with acute respiratory failure. Patient is currently on remdesivir, day 4; to continue along with dexamethasone, Eliquis, zinc and ascorbic acid and respiratory support. Monitor clinical course closely. MMODL / IJN: [id number] /
[2021-11-25 07:58] LABS: African American GFR (CKD) >90 (>60 ml/min/1.73 sqM); Anion Gap 7 mmol/L; Blood Urea Nitrogen 16 mg/dL (7-17); Calcium 7.8 mg/dL (8.4-10.2); Carbon Dioxide 23 mmol/L (22-30); Chloride 106 mmol/L (98-107); Glucose 109 mg/dL (74-99); Non-African American GFR(CKD) >90 (>60 ml/min/1.73 sqM); Potassium 3.2 mmol/L (3.5-5.1); Sodium 136 mmol/L (137-145)
[2021-11-25 08:13] LABS: HCT 34.4 % (34.0-46.0); HGB 11.6 gm/dL (11.4-16.0); MCH 30.3 pg (25.0-35.0); MCHC 33.8 g/dL (31.0-37.0); MCV 89.6 fL (80.0-100.0); Mean Platelet Volume 7.6; Platelet Count 154 k/uL (150-450); RBC 3.84 m/uL (3.80-5.40); RDW 13.3 % (11.5-15.5); WBC 3.9 k/uL (3.8-10.6)
[2021-11-25] MEDS: APIXABAN 5 MG TAB PO SCH (09:00)
[2021-11-25] MEDS: lisinopriL 20 MG TAB PO SCH (09:00)
[2021-11-25] MEDS: ASCORBIC ACID 500 MG TAB PO SCH (09:00)
[2021-11-25] MEDS: dexAMETHasone 2 MG TAB PO SCH (09:00)
[2021-11-25] MEDS: FAMOTIDINE 20 MG TAB PO SCH (09:01)
[2021-11-25] MEDS: METOPROLOL SUCCINATE (ER) 25 MG TAB.ER.24H PO SCH (09:01)
[2021-11-25] MEDS: ZINC SULFATE 220 MG CAP PO SCH (09:01)
--- NOTE | 2021-11-25 09:36 | P.PN ---
Subjective Progress Note Date: 11/25/21 Principal diagnosis: Syncope, COVID-19 pneumonia This is a pleasant 71-year-old female patient with a known history of hypertension. For the past 10 days she's been having issues with shortness of breath, cough congestion fever. Prior to her arrival on 11/19/2021 she was in her kitchen making a cup of coffee when she suddenly passed out. Upon awakening she was able to call out to her son and was brought in by EMS. Echocardiogram revealed preserved left ventricular systolic function with ejection fraction 50- 55%. White count 2.5. Hemoglobin 12.4. Platelet count 86,000. Lymphocytes 0.25. D-dimer 0.94. Sodium 140. Potassium 3.4. Creatinine 0.52. TSH 0.247. Free T4 1 0.35. She was positive for COVID-19. Dopplers of the lower extremity were negative for DVT. CT angiogram ruled out pulmonary embolism. There is findings consistent with COVID-19 pneumonia. She is seen today in consultation on the regular medical floor. She is currently sitting up in bed. Awake and alert in no acute distress. She has had also developed new onset atrial fibrillation with rapid ventricular response. She was initially on a Cardizem drip. Heart rate better controlled today. She is requiring 6 L high flow nasal cannula to maintain O2 saturation in the 90s. She's been initiated on Remdesivir per ID services. Continued on Decadron. Anticoagulated with Eliquis. On vitamin supplements. The patient is seen today 11/24/2021 in follow-up on the regular medical floor. She is currently sitting up in bed. Awake and alert in no acute distress. Breathing a bit easier today compared to yesterday. Requiring 9 L high flow nasal cannula to maintain O2 saturations in the 90s. She's afebrile. Hemodynamically stable. D-dimer 1.61. LDH 292. C-reactive protein 1.80. This is day #4 of Remdesivir. She is continued on Eliquis, Decadron, vitamin supplements. She remains in sinus rhythm. The patient is seen today 11/25/2021 in follow-up on the regular medical floor. Currently sitting up in bed having breakfast. Awake and alert in no acute distress. Feeling better today compared to yesterday. Down to 5 L high flow nasal cannula with O2 saturation in the 90s. No fever chills. White count 3.9. Hemoglobin 11.6. Sodium 136. Potassium 3.2. Creatinine 0.48. She is continued on Decadron, Eliquis, vitamin supplements. Day #5 of Remdesivir. Objective - Vital Signs Vital signs: Vital Signs Temp 98.1 F 11/25/21 07:54 Pulse 67 11/25/21 07:54 Resp 18 11/25/21 07:54 BP 144/78 11/25/21 07:54 Pulse Ox 92 L 11/25/21 07:54 Intake & Output 11/24/21 11/25/21 11/25/21 18:59 06:59 18:59 Intake Total 118 Balance 118 Intake: Oral 118 Other: Voiding Method Toilet Toilet # Voids 1 2 - Exam GENERAL EXAM: Alert, very pleasant 71-year-old female patient, on 5 L high flow nasal cannula, comfortable in no apparent distress. HEAD: Normocephalic. EYES: Normal reaction of pupils, equal size. NOSE: Clear with pink turbinates. THROAT: No erythema or exudates. NECK: No masses, no JVD. CHEST: No chest wall deformity. LUNGS: Equal air entry with crackles in the bilateral posterior bases CVS: S1 and S2 normal with no audible murmur, regular rhythm. ABDOMEN: No hepatosplenomegaly, normal bowel sounds, no guarding or rigidity. SPINE: No scoliosis or deformity SKIN: No rashes CENTRAL NERVOUS SYSTEM: No focal deficits, tone is normal in all 4 extremities. EXTREMITIES: There is no peripheral edema. No clubbing, no cyanosis. Peripheral pulses are intact. - Labs CBC & Chem 7: 11/25/21 07:25 11/25/21 07:25 Labs: Abnormal Lab Results - Last 24 Hours (Table) 11/24/21 11/25/21 Range/Units 06:45 07:25 Sodium 136 L (137-145) mmol/L Potassium 3.2 L (3.5-5.1) mmol/L Creatinine 0.48 L (0.52-1.04) mg/dL Glucose 109 H (74-99) mg/dL Calcium 7.8 L (8.4-10.2) mg/dL Lactate Dehydrogenase 292 H (120-246) U/L C-Reactive Protein 1.80 H (0.00-0.80) mg/dL Assessment and Plan Assessment: 1 Syncopal episode possibly related to new onset atrial fibrillation, possibly related to hypoxemia 2 Acute hypoxemic respiratory failure secondary to COVID-19 pneumonia. Not vaccinated. Initiated on Remdesivir per ID services. Symptoms 10 days out. 3 Hypertension 4 New-onset atrial fibrillation, anticoagulated with Eliquis Plan: The patient was seen and evaluated Improving and on 5 L nasal cannula Continued on day #5 Remdesivir Remains on Eliquis, Decadron, vitamin supplements Cleared for discharge from the pulmonary standpoint Will require home oxygen Follow-up in our office in 3-4 weeks I, the cosigning physician, performed a history & physical examination of the patient. Lungs sounds with crackles in the bilateral bases. Maintaining good O2 saturations in the 90s on 5 L high flow nasal cannula I discussed the asses sment and plan of care with my nurse practitioner, Zohra Mcmahon. I attest to the above note as dictated by her.
[2021-11-25] MEDS ORDERED: POTASSIUM CHLORIDE ER 20 MEQ TAB.ER PO STA ×2 (10:19→11:41)
--- NOTE | 2021-11-25 10:26 | P.DS ---
Providers Date of admission: 11/21/21 08:32 Attending physician: Kemal Sol Consults: 11/20/21 13:23 Consult Physician Routine Consulting Provider: King Hinkle Consult Reason/Comments: Covid 19 Do you want consulting provider notified?: Yes 11/22/21 06:49 Consult Physician Routine Consulting Provider: Calin Sanford Consult Reason/Comments: new onset Afib with RVR Do you want consulting provider notified?: Yes 11/22/21 15:52 Consult Physician Routine Consulting Provider: Tena Arias Consult Reason/Comments: covid, on remdesivir, 4L 02 Do you want consulting provider notified?: Yes Primary care physician: [facility] Course: 71-year-old pleasant female came in with complaints of loss of consciousness and Jasmine's weakness and fatigue. Patient is found to have Covid 19. When questioned patient was having symptoms of cough and generalized fatigue going on for about 2 weeks. Patient does have mild infiltrate on the chest x-ray. Patient is presently saturating borderline 91% because of which I'll monitor 1 more night. Patient did receive Monocryl antibody infusion yesterday patient does have high-grade fever of 101. Patient blood pressures borderline low normal. Echo was ordered patient is on both amlodipine and the LAURA inhibitor amlodipine is being discontinued can you with LAURA inhibitor at this time. Patient feels better today. Patient was bit hyponatremic which improved at this time. 11/21/2021 Patient the is requiring oxygen today because of which I'm start her on Decadron and pulmonary will be consulted. 11/22/2021 Patient is seen in follow-up and continues on 4 L via nasal cannula with shortness of breath with exertion. Patient also continues on oral dexamethasone long with vitamin zinc supplements and maintained on subcutaneous Lovenox which is being increased to twice daily along with Remdesivir with infectious disease following closely. Cardiology was also consulted and patient had gone into A. fib with RVR and placed on IV Cardizem. Patient has since converted and being transitioned to oral metoprolol and will be continued on Lovenox for anticoagulation. Labs: Sodium is 140, potassium is 3.4, BUN is 15, creatinine is 0.5 to, magnesium is 2.2, TSH is 0.247, free T4 is 1.35 11/23/2021 Patient feels better but the patient is still requiring several liters of oxygen. Patient the did undergo CT angios the chest results of which are still pending. Patient has new onset atrial fibrillation for which patient was started on Eliquis. 11/24/2021 Patient overall feels better. Carotids and requirements are bit better patient is saturating very well and I liters we can taper it down even more if we're able to bring it down to 5 L patient will be discharged at that time IV fluids will be discontinued will obtain basic metabolic profile and CBC tomorrow and the her d-dimer is elevated to 1.6 patient is already on Eliquis.CT A no PE 11/25/2021 Patient is feeling much better today patient also requirements has come down to 5 L although patient is saturating borderline at around 90% on the on 5 L patient wishes to go home patient will be discharged today. Potassium is low which will be replaced and this is secondary to IV fluids. PHYSICAL EXAMINATION: GENERAL: The patient is alert and oriented x3, not in any acute distress. Well developed, well nourished. HEENT: Pupils are round and equally reacting to light. EOMI. No scleral icterus. No conjunctival pallor. Normocephalic, atraumatic. No pharyngeal erythema. No thyromegaly. CARDIOVASCULAR: S1 and S2 present. No murmurs, rubs, or gallops. PULMONARY: Chest is clear to auscultation, no wheezing or crackles. ABDOMEN: Soft, nontender, nondistended, normoactive bowel sounds. No palpable organomegaly. MUSCULOSKELETAL: No joint swelling or deformity. EXTREMITIES: No cyanosis, clubbing, or pedal edema. NEUROLOGICAL: Gross neurological examination did not reveal any focal deficits. SKIN: No rashes. Assessment: -Syncope: Secondary to Covid 19 infection patient received IV fluids and will continue -Atrial fibrillation with RVR, new onset, patient was started on anti- coagulation patient is presently rate controlled. -Acute hypoxic respiratory failure secondary to covid 19 , presently on 5 L of oxygen -Covid 19 infection and pneumonia, infectious disease following patient is maintained on oral dexamethasone along with vitamin and zinc supplements, Lovenox twice daily, and receivied REmdesivir -Hypertension Patient will be discharged on home oxygen. Patient Condition at Discharge: Stable Plan - Discharge Summary New Discharge Prescriptions: New dexAMETHasone ORAL [Hexadrol] 6 mg PO DAILY #5 tab guaiFENesin-DM 100-10MG/5ML [Robitussin DM] 5 ml PO Q6HR PRN #250 ml PRN Reason: Cough Ascorbic Acid [Vitamin C] 500 mg PO BID #30 tab Apixaban [Eliquis] 5 mg PO BID #60 tab Zinc Sulfate [Orazinc] 220 mg PO DAILY #30 cap Famotidine [Pepcid] 20 mg PO BID #10 tab Metoprolol Succinate (ER) [Toprol XL] 25 mg PO DAILY #30 Continue amLODIPine BESYLATE/BENAZEPRIL [amLODIPine BESYLATE/BENAZEPRIL 5-20 MG] 1 tab PO DAILY Discontinued Aspirin 81 mg PO DAILY Ibuprofen [Motrin Ib] 400 mg PO Q8H PRN PRN Reason: Pain Or Fever > 100.5 Discharge Medication List amLODIPine BESYLATE/BENAZEPRIL [amLODIPine BESYLATE/BENAZEPRIL 5-20 MG] 1 tab PO DAILY 09/12/21 [History] Apixaban [Eliquis] 5 mg PO BID #60 tab 11/25/21 [Rx] Ascorbic Acid [Vitamin C] 500 mg PO BID #30 tab 11/25/21 [Rx] Famotidine [Pepcid] 20 mg PO BID #10 tab 11/25/21 [Rx] Metoprolol Succinate (ER) [Toprol XL] 25 mg PO DAILY #30 11/25/21 [Rx] Zinc Sulfate [Orazinc] 220 mg PO DAILY #30 cap 11/25/21 [Rx] dexAMETHasone ORAL [Hexadrol] 6 mg PO DAILY #5 tab 11/25/21 [Rx] guaiFENesin-DM 100-10MG/5ML [Robitussin DM] 5 ml PO Q6HR PRN #250 ml 11/25/21 [Rx] Follow up Appointment(s)/Referral(s): Wade Barrera DO [Primary Care Provider] - 1-2 days [facility],Equipment [NON-STAFF] - As Needed (Supplier of home oxygen) [facility] [facility], [NON-STAFF] - 1-2 Days Patient Instructions/Handouts: Coronavirus Disease 2019 (COVID-19), Using Oxygen at Home (DC) Activity/Diet/Wound Care/Special Instructions: Please complete and fax oxygen order with supporting paperwork to [facility] IF ready to d/c this weekend. Fax: #[phone]. Discharge/Stand Alone Forms: Personal Director [employer] Discharge Disposition: HOME WITH HOME HEALTH SERVICES
[2021-11-25] MEDS: REMDESIVIR 100 MG in SODIUM CHLORIDE 0.9% 250 ML IVPB SCH (10:58)
[2021-11-25 15:45] VITALS: BP 155/81; PULSE 71; RESP 21; TEMP 98.4
--- NOTE | 2021-11-25 16:09 | PN ---
PROGRESS NOTE DATE OF SERVICE: 11/25/2021 REASON FOR FOLLOWUP: COVID-19 pneumonia. INTERVAL HISTORY: The patient is afebrile. The patient is breathing more comfortably. The patient denies having any chest pain. No worsening cough or sputum production. No abdominal pain or diarrhea. PHYSICAL EXAMINATION: Her blood pressure is 144/78 with a pulse of 67, temperature 98.1. She is 92% on 5 L nasal cannula. General description is an elderly female up in the bed in no distress. Respiratory system: Unlabored breathing. A few crackles at the bases bilaterally. Heart S1, S2. Regular rate and rhythm. Abdomen soft, no tenderness. No guarding or rigidity. LABS: Hemoglobin is 11.3, white count 3.9, Creatinine 0.48. DIAGNOSTIC IMPRESSION AND PLAN: Patient with acute respiratory failure secondary to COVID-19 pneumonia. This patient seems to have shown some clinical improvement. Patient has completed a five-day course of remdesivir. Will finish therapy with Eliquis, dexamethasone, zinc and ascorbic acid with close outpatient followup. Continue with supportive care. MMODL / IJN: [id number] /
== END 2021-11-25 16:07 | disposition home health service (06) | DRG 177 ==
LOC: EC 16:16 → 6NMEDSUR 18:44 → OBSVTOIN 11-21 08:32
PROVIDERS: ADMIT Hospitalist; ATTEND Hospitalist
PROC: XW033F6 Introduction of Bamlanivimab Monoclonal Antibody into Peripheral Vein, Percutaneous Approach, New Technology Group 6 (ICD-10-PCS; principal; 2021-11-19)
PROC: XW033E6 Introduction of Etesevimab Monoclonal Antibody into Peripheral Vein, Percutaneous Approach, New Technology Group 6 (ICD-10-PCS; principal; 2021-11-19)
PROC: XW033E5 Introduction of Remdesivir Anti-infective into Peripheral Vein, Percutaneous Approach, New Technology Group 5 (ICD-10-PCS; 2021-11-21)
PROC: 5A0945A Assistance with Respiratory Ventilation, 24-96 Consecutive Hours, High Flow/Velocity Cannula (ICD-10-PCS; 2021-11-23)
DX: U07.1 COVID-19 (principal); J12.82 Pneumonia due to coronavirus disease 2019; J96.01 Acute respiratory failure with hypoxia; E87.1 Hypo-osmolality and hyponatremia; D69.6 Thrombocytopenia, unspecified; I48.0 Paroxysmal atrial fibrillation; G56.02 Carpal tunnel syndrome, left upper limb; D72.810 Lymphocytopenia; E78.5 Hyperlipidemia, unspecified; I10 Essential (primary) hypertension; M19.90 Unspecified osteoarthritis, unspecified site; Z79.82 Long term (current) use of aspirin; Z79.899 Other long term (current) drug therapy; Z85.41 Personal history of malignant neoplasm of cervix uteri; Z87.2 Personal history of diseases of the skin and subcutaneous tissue; Z87.891 Personal history of nicotine dependence; Z98.890 Other specified postprocedural states; Z88.5 Allergy status to narcotic agent
CPT/HCPCS: 36415; 71046; 71275; 80048; 80053; 83615; 83735; 84439; 84443; 84484; 85025; 85027; 85379; 85610; 85730; 86140; 87635; 93005; 93306; 93970; 94760; 96360; 99285

== ENCOUNTER → 2022-08-21 | Outpatient (CLI) | payer MEDICARE ==
--- NOTE | 2022-08-22 08:13 | MM ---
Reason for Exam: Screening (asymptomatic). Last screening mammogram was performed 12 month(s) ago. Patient History: Menarche at age 12. First Full-Term at age 24. Postmenopausal. Other cancer. 2000, Benign Excisional Biopsy on the right side. Risk Values: Genia 5 year model risk: 1.9%. NCI Lifetime model risk: 4.8%. Prior Study Comparison: 05/30/2016 Bilateral Screening Mammogram, [facility]. 08/13/2017 Bilateral Screening Mammogram, [facility]. 07/15/2019 Bilateral Screening Mammogram, [facility]. 08/18/2021 Bilateral Screening Mammogram, [facility]. Tissue Density: The breast tissue is heterogeneously dense. This may lower the sensitivity of mammography. Findings: Analyzed By CAD. There is no suspicious group of microcalcifications or new suspicious mass in either breast. Overall Assessment: Negative, BI-RAD 1 Management: Screening Mammogram of both breasts in 1 year. A clinical breast exam by your physician is recommended on an annual basis and results should be correlated with mammographic findings. Electronically signed and approved by: Fredis Cloud M.D. Radiologis
== END | disposition home or self-care (01) ==
LOC: RADMAMWWP 06:39
PROVIDERS: ATTEND Family Medicine
DX: Z12.31 Encounter for screening mammogram for malignant neoplasm of breast (principal); Z78.0 Asymptomatic menopausal state
CPT/HCPCS: 77063; 77067

== ENCOUNTER → 2023-08-20 | Outpatient (CLI) | payer MEDICARE ==
--- NOTE | 2023-08-22 09:29 | MM ---
Reason for Exam: Screening (asymptomatic). Last screening mammogram was performed 12 month(s) ago. Patient History: Menarche at age 12. First Full-Term at age 24. Postmenopausal. Other cancer. 2000, Benign Excisional Biopsy on the right side. Risk Values: Genia 5 year model risk: 1.9%. NCI Lifetime model risk: 4.6%. Prior Study Comparison: 07/15/2019 Bilateral Screening Mammogram, [facility]. 08/18/2021 Bilateral Screening Mammogram, [facility]. 08/21/2022 Bilateral MG 3D screening mammo w/cad, [facility]. Tissue Density: The breast tissue is heterogeneously dense. This may lower the sensitivity of mammography. Findings: Analyzed By CAD. There is no suspicious group of microcalcifications or new suspicious mass in either breast. Stable chronic nodule left breast since 2019. Overall Assessment: Benign, BI-RAD 2 Management: Screening Mammogram of both breasts in 1 year. . Patient should continue monthly self-breast exams. A clinical breast exam by your physician is recommended on an annual basis. This exam should not preclude additional follow-up of suspicious palpable abnormalities. Note on Genia scores and lifetime risk: 1. A Genia score greater than 3% is considered moderate risk. If this is the case, consider specialist referral to assess eligibility for a risk reducing agent. 2. If overall lifetime risk for the development of breast cancer is 20% or higher, the patient may qualify for future screening with alternating mammogram and breast MRI. Electronically signed and approved by: Fredis Cloud M.D. Radiologis
== END | disposition home or self-care (01) ==
LOC: RADMAMWWP 13:40
PROVIDERS: ATTEND Family Medicine
DX: Z12.31 Encounter for screening mammogram for malignant neoplasm of breast (principal); Z78.0 Asymptomatic menopausal state
CPT/HCPCS: 77063; 77067

== ENCOUNTER → 2024-02-27 | Outpatient (CLI) | payer MEDICARE ==
[2024-02-27 15:20] LABS: Basophils # (A) 0.01 X 10*3/uL (0.00-0.10); Basophils % (A) 0.3 %; Eosinophils # (A) 0.18 X 10*3/uL (0.04-0.35); Eosinophils % (A) 4.7 %; HCT 40.6 % (37.2-46.3); HGB 13.4 g/dL (12.0-15.0); Lymphocytes % (A) 23.7 %; MCH 30.9 pg (27.0-32.0); MCV 93.8 FL (80.0-97.0); Mean Platelet Volume 9.5 FL (9.5-12.2); Monocytes # (A) 0.35 X 10*3/uL (0.20-1.00); Monocytes % (A) 9.2 %; NRBC Per 100 WBC 0 X 10*3/uL (0.00-0.01); Neutrophils # (A) 2.34 X 10*3/uL (1.80-7.70); Neutrophils % (A) 61.8 %; Platelet Count 169 X 10*3/uL (140-440); RBC 4.33 X 10*6/uL (4.10-5.20); WBC 3.79 X 10*3/uL (4.50-10.00)
[2024-02-27 15:25] LABS: BUN/Creat Ratio 15.71 Ratio (12.00-20.00); Calcium 9.9 mg/dL (8.7-10.3); Carbon Dioxide 26.7 mmol/L (21.6-31.8); Chloride 106 mmol/L (96-109); Glucose 130 mg/dL (70-110); Sodium 143 mmol/L (135-145)
[2024-02-27 15:40] LABS: INR 1.03 sec (0.93-1.11); Prothrombin Time 11.1 sec (9.9-11.9)
== END | disposition home or self-care (01) ==
LOC: LABPAT 08:18
PROVIDERS: ATTEND Orthopaedic Surgery
DX: Z01.812 Encounter for preprocedural laboratory examination (principal); M16.11 Unilateral primary osteoarthritis, right hip; Z22.322 Carrier or suspected carrier of Methicillin resistant Staphylococcus aureus
CPT/HCPCS: 36415; 80048; 85025; 85610; 86850; 86900; 86901; 87070

== ENCOUNTER 2024-03-03 09:39 | Day surgery (SDC) | payer MEDICARE ==
[~2024-03-03 09:39] MED LIST: LACTATED RINGERS 1,000 ML IV SCH
[2024-03-03] MEDS: LACTATED RINGERS 1,000 ML IV ONE (10:10)
[2024-03-03 10:18] LABS: Glucose,Whole Blood 122 mg/dL (70-110)
[2024-03-03 10:43] VITALS: TEMP 97.6
--- NOTE | 2024-03-03 10:57 | P.GSHP ---
History of Present Illness H&P Date: 03/03/24 Chief Complaint: Colon cancer screening 73-year-old female here for colonoscopy. Last colonoscopy 9 years ago. Family history of colon cancer in her sister. No bowel complaints. Past Medical History Past Medical History: Cancer, GERD/Reflux, Hyperlipidemia, Hypertension Additional Past Medical History / Comment(s): Hx Cervical Cancer 1996. History of Any Multi-Drug Resistant Organisms: None Reported Past Surgical History: Breast Surgery, Orthopedic Surgery Additional Past Surgical History / Comment(s): Cysts removed from wrist and right breast, colonoscopy, D&C. rt shoulder arthroscopy, Past Anesthesia/Blood Transfusion Reactions: No Reported Reaction Smoking Status: Former smoker - Past Family History Mother Family Medical History: No Reported History Medications and Allergies Home Medications Medication Instructions Recorded Confirmed Type Apixaban [Eliquis] 5 mg PO BID #60 tab 11/25/21 02/28/24 Rx Famotidine [Pepcid] 20 mg PO BID #10 tab 11/25/21 02/28/24 Rx Metoprolol Succinate (ER) [Toprol 50 mg PO DAILY 02/28/24 02/28/24 History XL] Multivit-Min/Iron/Folic/Lutein 1 tab PO DAILY 02/28/24 02/28/24 History [Centrum Silver Women Tablet] dexAMETHasone ORAL [Hexadrol] 20 mg PO DAILY 02/28/24 02/28/24 History Allergies Allergy/AdvReac Type Severity Reaction Status Date / Time codeine AdvReac nausea, Verified 02/28/24 08:21 [From Tylenol-Codeine] vomiting Surgical - Exam Vital Signs Temp Pulse Resp BP Pulse Ox 97.6 F 68 18 149/68 97 03/03/24 10:09 03/03/24 10:09 03/03/24 10:09 03/03/24 10:09 03/03/24 10:09 Physical exam: General: Well-developed, well-nourished HEENT: Normocephalic, sclerae nonicteric Abdomen: Nontender, nondistended Extremities: No edema Neuro: Alert and oriented Results - Labs Abnormal Lab Results - Last 24 Hours (Table) 03/03/24 Range/Units 10:16 POC Glucose (mg/dL) 122 H (70-110) mg/dL Assessment and Plan (1) Colon cancer screening Narrative/Plan: Will proceed with colonoscopy at this time. Current Visit: Yes Status: Acute Code(s): Z12.11 - ENCOUNTER FOR SCREENING FOR MALIGNANT NEOPLASM OF COLON SNOMED Code(s): 604048424
[2024-03-03] MEDS ORDERED: PROPOFOL 10 MG/ML 20 ML VIAL IV ONE (10:58)
--- NOTE | 2024-03-03 11:14 | P.PCN ---
Date of Procedure: 03/03/24 Procedure(s) Performed: PREOPERATIVE DIAGNOSIS: Colon cancer screening, family history of colon cancer POSTOPERATIVE DIAGNOSIS: Mild diverticulosis PROCEDURE: Colonoscopy ANESTHESIA: MAC SURGEON: Matthew Stanley M.D. SPECIMENS: None ENDOSCOPIC PROCEDURE: The patient was placed on the endoscopy table in the left decubitus position. The Olympus colonoscope was inserted into the anus and passed under direct visualization to the base of the cecum. The appendiceal orifice was visualized. From that point the scope was slowly withdrawn inspecting all surfaces carefully. There were no neoplastic inflammatory or polypoid lesions throughout the cecum, ascending, transverse, descending, sigmoid and rectum. There was mild left-sided diverticulosis noted. Digital rectal examination was normal. The patient was taken to the recovery room in stable condition per anesthesia guidelines. RECOMMENDATIONS: Resume diet. Repeat colonoscopy 5 years.
[2024-03-03 12:07] VITALS: BP 120/71; PULSE 63; RESP 18
== END 2024-03-03 12:10 | disposition home or self-care (01) ==
LOC: ORWHC2ENDO 09:39
PROVIDERS: ATTEND Surgery
DX: Z12.11 Encounter for screening for malignant neoplasm of colon (principal); K57.30 Diverticulosis of large intestine without perforation or abscess without bleeding; Z80.0 Family history of malignant neoplasm of digestive organs; E78.5 Hyperlipidemia, unspecified; I10 Essential (primary) hypertension; K21.9 Gastro-esophageal reflux disease without esophagitis; Z85.41 Personal history of malignant neoplasm of cervix uteri; Z87.891 Personal history of nicotine dependence; Z88.5 Allergy status to narcotic agent; Z79.01 Long term (current) use of anticoagulants; Z79.52 Long term (current) use of systemic steroids
CPT/HCPCS: J2704; G0105

== ENCOUNTER 2024-03-09 10:38 | Day surgery (SDC) | payer MEDICARE ==
--- NOTE | 2024-03-09 01:08 | HP ---
HISTORY AND PHYSICAL DATE OF SCHEDULED SURGERY: 03/09/2024 HISTORY OF PRESENT ILLNESS: Sunitha Dia is a 73-year-old patient seen with symptomatic right hip osteoarthritis. We discussed options regarding treatment. She elected to proceed with right anterior total hip arthroplasty. Consent was obtained. We obtained medical clearance by Dr. Barrera and cardiac clearance by Dr. Sanford. PAST MEDICAL HISTORY: Hyperlipidemia, hypertension, cardiovascular disease. PAST SURGICAL HISTORY: Left wrist surgery. DAILY MEDICATIONS: 1. Amlodipine. 2. Metoprolol. 3. Pepcid. 4. Vitamins. ALLERGIES: None. SOCIAL HISTORY: She denies tobacco use. PHYSICAL EVALUATION OF THE RIGHT HIP: She has diffuse tenderness about the hip, limited range of motion with severe pain. Positive hip impingement sign. Straight-leg raise is negative. Her distal neurovascular exam is intact. IMAGING STUDIES: Radiographs of the right hip revealed severe osteoarthritic changes. IMPRESSION: 1. Right hip osteoarthritis. 2. Hypertension. 3. Hyperlipidemia. 4. Atrial fibrillation. PLAN: Direct anterior right total hip arthroplasty. MMODL / IJN: [id number] /
[~2024-03-09 10:38] MED LIST changes: -LACTATED RINGERS 1,000 ML IV SCH; +MIDAZOLAM 2 MG/2 ML VIAL IV PRN; +TRANEXAMIC 1,000 MG/100ML-NACL 1,000 MG in SALINE 1 100ML.BAG IVPB PRN; +fentaNYL (PF) 50 MCG/ML 2 ML AMP IV PRN
[2024-03-09] MEDS: LACTATED RINGERS 1,000 ML IV SCH (11:14)
[2024-03-09] MEDS: ONDANSETRON 4 MG/2 ML VIAL IVP ONE (11:23)
[2024-03-09] MEDS: DEXAMETHASONE SOD PHOSPHATE 4 MG/ML 1 ML VIAL IV ONE (11:23)
[2024-03-09] MEDS: ACETAMINOPHEN TAB 500 MG TAB PO PRN (11:23)
[2024-03-09] MEDS: MELOXICAM 7.5 MG TAB PO PRN (11:23)
[2024-03-09] MEDS: fentaNYL (PF) 50 MCG/1 ML VIAL IVP ONE (11:40)
[2024-03-09] MEDS: MIDAZOLAM 2 MG/2 ML VIAL IVP ONE (11:40)
[2024-03-09] MEDS ORDERED: PROPOFOL 10 MG/ML 20 ML VIAL IV ONE (12:31)
[2024-03-09] MEDS ORDERED: TRANEXAMIC 1,000 MG/100ML-NACL PREMIX BAG ONE (12:31)
[2024-03-09] MEDS ORDERED: fentaNYL (PF) 50 MCG/ML 2 ML AMP ONE (12:31)
[2024-03-09] MEDS ORDERED: ROPIVACAINE 5 MG/ML 30 ML VIAL ONE (12:31)
[2024-03-09] MEDS ORDERED: MIDAZOLAM 2 MG/2 ML VIAL ONE (12:31)
[2024-03-09] MEDS ORDERED: ePHEDrine 50 MG/ML 1 ML VIAL ONE (12:31)
[2024-03-09] MEDS ORDERED: WATER FOR INJECTION, STERILE 10 ML VIAL IV ONE (12:31)
[2024-03-09] MEDS: ceFAZolin 1,000 MG in SODIUM CHLORIDE 0.9% 1,000 ML IRRIGATION ONE (13:06)
[2024-03-09] MEDS: LACTATED RINGERS 1,000 ML IV ONE (13:55)
[2024-03-09] MEDS ORDERED: HYDROcodone/APAP 5-325MG 1 EACH TAB PO PRN (14:13)
[2024-03-09] MEDS ORDERED: HYDROmorphone 0.5 MG/0.5 ML SYRINGE IVP PRN ×2 (14:13)
[2024-03-09] MEDS ORDERED: ONDANSETRON 4 MG/2 ML VIAL IVP PRN (14:13)
[2024-03-09] MEDS ORDERED: NALOXONE 0.4 MG/ML 1 ML VIAL IV PRN (14:13)
--- NOTE | 2024-03-09 14:13 | P.OP ---
Date of Procedure: 03/09/24 Preoperative Diagnosis: Right hip osteoarthritis Postoperative Diagnosis: Right hip osteoarthritis Procedure(s) Performed: Direct anterior right total hip arthroplasty Implants: 1. DePuy [place] size 9 short neck with collar press-fit femoral stem 2. DePuy [place] 52 mm press-fit acetabular shell 3. DePuy [place] neutral polyethylene acetabular liner 36 mm ID 52 mm OD 4. Biolox delta ceramic femoral head +5 36 mm Anesthesia: GETA, regional (Erector spinae block) Surgeon: Darius Douglas [employer] President #1: Ascencion Springer Estimated Blood Loss (ml): 40 Pathology: none sent Condition: stable Disposition: PACU Indications for Procedure: 73-year-old patient seen with symptomatic right hip osteoarthritis. After having treatment options discussed, she elected to proceed with direct anterior right total hip arthroplasty. Operative Findings: See description of procedure Description of Procedure: The patient was taken to the operative suite. Patient underwent a general anesthetic by the department of anesthesia. Patient was then transferred to the [place] table. Patient was given preoperative IV antibiotics and TXA. Both lower extremities were placed in standard leg spars. The hip was then prepped and draped in the normal sterile orthopedic fashion. A standard anterior incision was made beginning 3 cm lateral and 1 cm distal to the ASIS extending 10 cm. D issection was then carried down through the subcutaneous soft tissues down to the fascia overlying the tensor fascia abi. An incision was now made through the fascia. Careful dissection was taken down exposing the tensor fascia abi muscle. A Cobra retractor was now placed along the medial femoral neck and a second one along the lateral femoral neck. The venous circumflex vessels were now identified, cauterized and clipped. We identified the anterior hip capsule. An incision was made through the hip capsule along the lateral border. I performed a partial anterior capsulectomy. Retractors were now placed around the femoral neck itself. A femoral neck cut was now made with a sagittal saw. It was completed with an osteotome at the lateral neck area. The femoral head was now removed without difficulty. The extremity was now rotated to 60 of external rotation. It was locked in position. Residual labrum was now debrided out. Serial reaming was performed of the acetabulum while Charlie SALMERON assisted holding an anterior retractor for exposure. Once we reached the appropriate size and a trial was position and fit nicely. The appropriate size was now chosen opened and made available. It was introduced into the acetabulum without difficulty. The C-arm/fluoroscopy was now brought into the operative field. We made sure we had a true AP pelvic view. We now under direct C- arm/fluoroscopy introduced into the acetabular component with appropriate version and inclination. I held the cup in appropriate position well Charlie SALMERON used a mallet to seat the acetabular component. I noted the component now to be well seated and stable. Acetabular cup introduce her was removed. The C-arm was pulled back. An appropriate liner was introduced and clicked into position. It was felt to be stable. At this point retractors were removed. The extremity was now placed into 140 external rotation with no traction. The leg was now dropped to the ground and adducted. Appropriate retractors were now positioned along the proximal femur. We also placed our femoral look into position. Additional capsular releasing was performed to gain access to the proximal femur. We now used a box osteotome. A canal finder was now utilized. Serial broaching was now performed with the assistance of Charlie SALMERON tapping the broaches down with a mallet while held the broach in appropriate rotation and position. This was done until we reached the appropriate size with good overall rotational stability. Appropriate calcar planing was performed. A trial head/neck was placed into position. The hip was now reduced. The C- arm/fluoroscopy was brought back into the operative field. I obtained an AP pelvis which demonstrated adequate leg length alignment. The trial components appeared adequately sized and positioned. the C-arm/fluoroscopy was pulled back. Retractors were repositioned and the hip was dislocated. The leg was again taken down to the ground and adducted. Appropriate retractors were repositioned as well as the femoral hook. All trial components were removed. The femoral implant was opened along with the femoral head. The femoral implant was i ntroduced on the appropriate handle into our pre-broached area. I held the component position well Charlie SALMERON used a mallet to seat the femoral component. The femoral component was now noted to be well seated and stable.. The femoral head was introduced with good positioning and fixation noted. Retractors were now removed. The hip was now reduced. There appeared be good positioning of the hip confirmed on intraoperative fluoroscopy. Spot films were obtained to document this. A second gram of TXA was given. Bipolar cautery had been utilized intermittently through the procedure for hemostasis. The wound was irrigated copiously with pulse lavage mechanical irrigation. The fascia was repaired with Vicryl suture. The subcutaneous soft tissues were repaired in layers with Vicryl suture. The skin was approximated with pernio/Dermabond. Sterile dressings were applied. Patient was then awakened, transferred to a bed and taken to recovery in stable condition. Charlie SALMERON assisted with the complex procedure.
--- NOTE | 2024-03-09 14:14 | XR ---
EXAMINATION TYPE: XR Hip Limited RT DATE OF EXAM: 03/09/2024 COMPARISON: NONE HISTORY: Postop TECHNIQUE: 4 view submitted. FINDINGS: There is postsurgical change compatible hip replacement surgery. IMPRESSION: 1. Postoperative change.
--- NOTE | 2024-03-09 14:17 | P.ANPRN ---
Procedure Note - Anesthesia - Nerve Block Performed Right Shahab Single Time Out Performed: Yes ([id number]) Date of Procedure: 03/09/24 Procedure Start Time: 11:40 Procedure Stop Time: 11:47 Location of Patient: PreOp Indication: Acute Post-Operative Pain, Requested by Surgeon Specifically requested for management of pain by DrJuan Antonio: Darius Douglas Sedation Type: Sedate with meaningful contact maintained Preparation: Sterile Prep Position: Supine Catheter: None Needle Types: Pajunk Needle Gauge: 21 Ultrasound used to visualize needle placement: Yes Ultrasound used to observe medication spread: Yes Injectate: 0.5% Ropivacaine (see comment for volume) (30cc) Blood Aspirated: No Pain Paresthesia on Injection Noted: No Resistance on Injection: Normal Image Stored and Saved: Yes Events: Uneventful and Well Tolerated
--- NOTE | 2024-03-09 14:18 | FL ---
EXAMINATION TYPE: FL guidance operating room DATE OF EXAM: 03/09/2024 HISTORY: Fluoroscopy time Total dose area product (DAP) in uGy*m?, mGy*cm? (or similar): 0.2668 IMPRESSION: 1. Fluoroscopy time.
[2024-03-09] MEDS: SODIUM CHLORIDE 0.9% 1,000 ML IV SCH (17:07)
[2024-03-09] MEDS: HYDROmorphone 0.5 MG/0.5 ML SYRINGE IVP PRN (17:42)
[2024-03-09] MEDS: SENNOSIDES-DOCUSATE SODIUM 1 EACH TAB PO SCH (20:46)
[2024-03-09] MEDS: HYDROcodone/APAP 5-325MG 1 EACH TAB PO PRN (20:49)
[2024-03-10] MEDS: ENOXAPARIN 40 MG/0.4 ML SYRINGE SQ SCH (09:22)
[2024-03-10] MEDS: FAMOTIDINE 20 MG TAB PO SCH (09:22)
[2024-03-10 09:48] VITALS: TEMP 97.9
[2024-03-10 10:48] LABS: Basophils # (A) 0.01 X 10*3/uL (0.00-0.10); Basophils % (A) 0.1 %; Eosinophils # (A) 0.01 X 10*3/uL (0.04-0.35); Eosinophils % (A) 0.1 %; HCT 33.7 % (37.2-46.3); HGB 11.4 g/dL (12.0-15.0); Lymphocytes # (A) 0.68 X 10*3/uL (0.90-5.00); Lymphocytes % (A) 8.7 %; MCHC 33.8 g/dL (32.0-37.0); MCV 91.6 FL (80.0-97.0); Mean Platelet Volume 9.5 FL (9.5-12.2); Monocytes # (A) 0.49 X 10*3/uL (0.20-1.00); Monocytes % (A) 6.3 %; NRBC Per 100 WBC 0 X 10*3/uL (0.00-0.01); Neutrophils # (A) 6.62 X 10*3/uL (1.80-7.70); Neutrophils % (A) 84.4 %; Platelet Count 161 X 10*3/uL (140-440); RBC 3.68 X 10*6/uL (4.10-5.20); RDW 12.3 % (11.5-14.5); WBC 7.84 X 10*3/uL (4.50-10.00)
--- NOTE | 2024-03-10 11:27 | P.PN ---
Subjective Progress Note Date: 03/10/24 Principal diagnosis: right hip osteoarthritis patient was seen at bedside this morning lying in semirecumbent position with dressing over right anterior hip. Patient says she did well with therapy this morning walked down the [place]faro and up-and-down steps. Patient says she has uri nated several times since surgery yesterday without issue. Patient says she has been passing gas, however, patient says she has not had a bowel movement yet. Patient denies chest pain, fever, shortness breath, nausea, vomiting, change in vision, loss of bowel/bladder control. Objective - Vital Signs Vital signs: Vital Signs Temp 97.9 F 03/10/24 07:04 Pulse 70 03/10/24 10:00 Resp 21 03/10/24 10:00 BP 126/65 03/10/24 07:04 Pulse Ox 99 03/10/24 07:04 FiO2 Intake & Output 03/09/24 03/10/24 03/10/24 18:59 06:59 18:59 Intake Total 1751 Output Total 35 Balance 1716 Weight 61.3 kg Intake: IV 1751 Output: Estimated Blood Loss 35 Other: Voiding Method Toilet # Voids 1 - Exam right hip: Incision is clean, dry, and intact. The social foam dressing is in good condition. There is minimal soft tissue swelling and ecchymosis surrounding the medial and lateral aspects of the incision. Calf is soft, no tenderness with palpation. Plantar flexion, dorsiflexion, EHL, FHL are intact. Sensory exam to light touch throughout the extremity is intact, dorsal pedis pulses 2+. - Labs CBC & Chem 7: 03/10/24 06:24 Labs: Abnormal Lab Results - Last 24 Hours (Table) 03/10/24 Range/Units 06:24 RBC 3.68 L (4.10-5.20) X 10*6/uL Hgb 11.4 L (12.0-15.0) g/dL Hct 33.7 L (37.2-46.3) % Lymphocytes # 0.68 L (0.90-5.00) X 10*3/uL Eosinophils # 0.01 L (0.04-0.35) X 10*3/uL Assessment and Plan Assessment: 1. right hip osteoarthritis - Postoperative day #1 status post direct anterior right total hip arthroplasty Plan: 1. right hip osteoarthritis - direct anterior right total hip arthroplasty performed yesterday, neck, for a 24. Patient stable at bedside. Patient does have a walker for home. Patient did do well with therapy this morning. Discharge home today with health services. 2. Appreciate medical management 3. Pain management - [place] 4. DVT prophylaxis - Lovenox in hospital. Patient to resume Eliquis at home 5. GI prophylaxis - senna 6. PT/OT - weightbearing as tolerated with walker 7. Encourage incentive spirometer use 8. Discharge planning - home today with health services Time with Patient: Less than 30
--- NOTE | 2024-03-10 11:34 | P.DS ---
Providers Date of admission: 03/09/2024 Expected date of discharge: 03/10/24 Attending physician: Darius Douglas Consults: 03/09/24 14:13 Consult Physician Routine Consulting Provider: Wade Barrera Reason/Comments: Medical management Do you want consulting provider notified?: Yes Primary care physician: Wade Barrera Hospital Course: Date of admission: 03/09/2024 Date of discharge: 03/10/2024 Admission diagnosis: right hip osteoarthritis Discharge diagnosis: same Attending physician: Dr. Douglas Surgical procedures: right total hip arthroplasty Brief history: Patient is a 73-year-old female with a history of progressive primary right hip osteoarthritis. At this point patient has failed conservative treatment measures and has opted to proceed with a elective right total hip arthroplasty. Hospital course: Details of patient's surgery can be found in operative report. Patient tolerated the procedure well and was subsequently transported to orth opedic floor. Patient's orthopeidc and medical care was provided daily. Patient had daily laboratory tests performed for evaluation of overall blood counts. Patient had daily physical therapy to include strengthening range of motion as well as education with walker ambulation. Patient was treated with Lovenox for their postoperative DVT prophylaxis during their inpatient stay. Patient was noted to have a relatively uneventful postoperative course. Patient reported satisfactory pain control with oral pain medications by postoperative day 1. Patient showed satisfactory progress with physical therapy. Patient moved steadily through the program and had no difficulty meeting the goals by postoperative day 1. Given patient's otherwise satisfactory course and having met physical therapy goals, plan is to discharge patient home with health services on postoperative day 1. Discharge condition/disposition: Patient will be discharged home with health services in stable condition. Discharge medications: Instructions are given on resumption of patient's normal daily medications per primary care recommendation, in addition patient will be prescribed [place]; senna; resume Eliquis at home. Discharge instructions: 1. Wound care and infection precautions, keep incision dry and covered while showering, no lotions, creams, moisturizers. No soaking, tubs, pools, hottubs. Do not scrub over the incision. 2. Weight-bear as tolerated with walker / cane until follow-up. 3. Ice and elevate when necessary. Do not exceed 20 minutes per hour with ice pack. 4. Utilize compression sleeve until seen at first follow up appointment. 5. Visiting nursing care. 6. Home physical therapy. 7. Pain meds and anticoagulants per prescription. 8. Pain medication has potential to cause constipation. Increase oral fluid and fiber intake. Contact primary care provider if you have not had a bowel movement within 48 hours after discharge 9. No anti-inflammatory medication until discussed at first post operative visit, this including Motrin, Aleve, Mobic, Diclofenac. 10. Follow up in office at 2 weeks postop with Charlie Springer PA-C / Shahid Miranda PA-C 11. Follow up with your primary care doctor 7-10 days after discharge. 12. Contact [facility] with any questions, . keep incision clean, dry, intact. While showering, cover silver foam dressing with Saran wrap. Keep silver foam dressing on until 03/09/24. Once dressing is removed, it is okay to shower directly over incision Assessment: right hip osteoarthritis Procedures: direct anterior right total hip arthroplasty Patient Condition at Discharge: Good Plan - Discharge Summary Discharge Rx Participant: Yes New Discharge Prescriptions: No Action Multivit-Min/Iron/Folic/Lutein [Centrum Silver Women Tablet] 1 tab PO DAILY amLODIPine BESYLATE/BENAZEPRIL [amLODIPine BESYLATE/BENAZEPRIL 5-20 mg] 5 - 20 mg DAILY Apixaban [Eliquis] 5 mg PO BID #60 tab Famotidine [Pepcid] 20 mg PO BID #10 tab Metoprolol Succinate (ER) [Toprol XL] 50 mg PO DAILY Discharge Medication List Apixaban [Eliquis] 5 mg PO BID #60 tab 11/25/21 [Rx] Famotidine [Pepcid] 20 mg PO BID #10 tab 11/25/21 [Rx] Metoprolol Succinate (ER) [Toprol XL] 50 mg PO DAILY 02/28/24 [History] Multivit-Min/Iron/Folic/Lutein [Centrum Silver Women Tablet] 1 tab PO DAILY 02/28/24 [History] amLODIPine BESYLATE/BENAZEPRIL [amLODIPine BESYLATE/BENAZEPRIL 5-20 mg] 5 - 20 mg DAILY 03/09/24 [History] Follow up Appointment(s)/Referral(s): [facility], [NON-STAFF] - 1-2 Days ([facility] will call you to schedule your in home nursing and physical therapy visits. ) Ascencion Springer, PAC [PHYSICIAN IMPROVEMENT DIRECTOR] - 03/24/24 11:20 am Activity/Diet/Wound Care/Special Instructions: Discharge instructions: 1. Wound care and infection precautions, keep incision dry and covered while showering, no lotions, creams, moisturizers. No soaking, tubs, pools, hottubs. Do not scrub over the incision. 2. Weight-bear as tolerated with walker / cane until follow-up. 3. Ice and elevate when necessary. Do not exceed 20 minutes per hour with ice pack. 4. Utilize compression sleeve until seen at first follow up appointment. 5. Visiting nursing care. 6. Home physical therapy. 7. Pain meds and anticoagulants per prescription. 8. Pain medication has potential to cause constipation. Increase oral fluid and fiber intake. Contact primary care provider if you have not had a bowel movement within 48 hours after discharge 9. No anti-inflammatory medication until discussed at first post operative visit, this including Motrin, Aleve, Mobic, Diclofenac. 10. Follow up in office at 2 weeks postop with Charlie Springer PA-C / Shahid Miranda PA-C 11. Follow up with your primary care doctor 7-10 days after discharge. 12. Contact [facility] with any questions, . keep incision clean, dry, intact. While showering, cover silver foam dressing with Saran wrap. Keep silver foam dressing on until 03/09/24. Once dressing is removed, it is okay to shower directly over incision Discharge Disposition: HOME WITH HOME HEALTH SERVICES
--- NOTE | 2024-03-10 12:16 | P.CONS ---
History of Present Illness - Reason for Consult Consult date: 03/10/24 Medical management Requesting physician: Darius Douglas - Chief Complaint Symptomatic right hip osteoarthritis, failed conservative treatment - History of Present Illness This is a pleasant 73-year-old female admitted with symptomatic right hip osteoarthritis, failed conservative treatment, status post elective direct anterior right total hip arthroplasty. Tolerated procedure well. Reports has been up multiple times ambulating with walker to and from bathroom, tolerated exertion well. Denies lightheadedness, dizziness or focal deficits. Denies chest pain, palpitations or shortness of breath. Past medical history significant for cervical cancer 1996, hypertension, hyperlipidemia, prior nicotine dependence, quit smoking 40 years ago, reports she drinks 3 drinks daily. Afebrile, normal WBC, hemoglobin 11.4, platelets 161. Vital signs stable, maintaining O2 sats in the high 90s on room air. Passing flatus. Denies numbness or tingling. Review of Systems Constitutional: Denied any fatigue denied any fever. Cardio vascular: denied any chest pain, palpitations Gastrointestinal denied any nausea vomiting Pulmonary: Denied any shortness of breath cough Neurologic denied any new focal deficits All inpatient medications were reviewed and appropriate changes in these medications as dictated in the interval history and assessment and plan. Past Medical History Past Medical History: Cancer, Hyperlipidemia, Hypertension Additional Past Medical History / Comment(s): Hx Cervical Cancer 1996. History of Any Multi-Drug Resistant Organisms: None Reported Past Surgical History: Orthopedic Surgery Additional Past Surgical History / Comment(s): Cysts removed from wrist and right breast, colonoscopy, D&C. colonsocopy, Right Hip 03/09, right shoulder Past Anesthesia/Blood Transfusion Reactions: No Reported Reaction Past Psychological History: No Psychological Hx Reported Smoking Status: Never smoker Past Alcohol Use History: Occasional Additional Past Alcohol Use History / Comment(s): Quit smoking 40 yrs ago. Pt states she drinks 3 drinks/day. Past Drug Use History: None Reported - Past Family History Mother Family Medical History: No Reported History Medications and Allergies Home Medications Medication Instructions Recorded Confirmed Type Apixaban [Eliquis] 5 mg PO BID #60 tab 11/25/21 03/05/24 Rx Famotidine [Pepcid] 20 mg PO BID #10 tab 11/25/21 03/05/24 Rx Metoprolol Succinate (ER) [Toprol 50 mg PO DAILY 02/28/24 03/05/24 History XL] Multivit-Min/Iron/Folic/Lutein 1 tab PO DAILY 02/28/24 03/05/24 History [Centrum Silver Women Tablet] amLODIPine BESYLATE/BENAZEPRIL 5 - 20 mg DAILY 03/09/24 03/09/24 History [amLODIPine BESYLATE/BENAZEPRIL 5-20 mg] HYDROcodone/APAP 5-325MG [[facility] [place] 1 - 2 tab PO Q6HR PRN #32 tab 03/10/24 Rx 5-325] Sennosides/Docusate Sodium [Senna 1 each PO DAILY #20 capsule 03/10/24 Rx Plus 8.6-50 mg Softgel] Allergies Allergy/AdvReac Type Severity Reaction Status Date / Time codeine AdvReac nausea, Verified 03/09/24 10:56 [From Tylenol-Codeine] vomiting Physical Exam Vitals: Vital Signs Temp Pulse Pulse Resp BP BP Pulse Ox 03/10/24 10:00 70 21 03/10/24 07:04 97.9 F 67 18 126/65 99 03/10/24 06:13 69 105/61 03/10/24 03:57 106/56 03/10/24 03:00 108/56 03/10/24 01:59 98 F 64 16 96/56 97 03/09/24 20:00 97.7 F 65 16 130/69 97 03/09/24 17:08 97.4 F L 58 L 18 137/69 96 03/09/24 16:02 59 L 18 126/60 98 03/09/24 15:32 62 20 133/60 97 03/09/24 15:17 56 L 20 128/58 96 03/09/24 15:02 59 L 20 128/58 98 03/09/24 14:47 60 18 114/59 94 L 03/09/24 14:32 57 L 14 116/56 94 L 03/09/24 14:17 97.4 F L 67 14 102/53 94 L 03/09/24 11:48 55 L 16 110/56 97 Intake and Output 03/09/24 03/10/24 03/10/24 22:59 06:59 14:59 Other: Voiding Method Toilet # Voids 1 1 Weight 61.3 kg GENERAL: Pleasant, sitting up in bed, alert and oriented x3, NAD HEENT: Pupils are round and equally reacting to light. EOMI. No scleral icterus. No conjunctival pallor. Normocephalic, atraumatic. No pharyngeal erythema. No thyromegaly. CARDIOVASCULAR: S1 and S2 present. No murmurs, rubs, or gallops. PULMONARY: Unlabored, equal air entry, chest is clear to auscultation, no wheezing or crackles. ABDOMEN: Soft, nontender, nondistended, normoactive bowel sounds. No palpable organomegaly. MUSCULOSKELETAL: No joint swelling or deformity. EXTREMITIES: Right lower extremity dressing clean dry and intact, no calf tenderness, no cyanosis, clubbing, or pedal edema. Positive DP pulses. NEUROLOGICAL: Gross neurological examination did not reveal any focal deficits. Strength and sensation grossly intact. SKIN: No rashes. Results CBC & Chem 7: 03/10/24 06:24 Labs: Abnormal Lab Results - Last 24 Hours (Table) 03/10/24 Range/Units 06:24 RBC 3.68 L (4.10-5.20) X 10*6/uL Hgb 11.4 L (12.0-15.0) g/dL Hct 33.7 L (37.2-46.3) % Lymphocytes # 0.68 L (0.90-5.00) X 10*3/uL Eosinophils # 0.01 L (0.04-0.35) X 10*3/uL Assessment and Plan Assessment: Symptomatic right hip osteoarthritis, failed conservative treatment, status post direct anterior right total hip arthroplasty Hypertension Hyperlipidemia Prior nicotine dependence Daily alcohol use, alcohol abstinence reinforced History of cervical cancer '97 Plan: Continue on current medication regimen ,monitoring and symptomatic treatment. Aggressive pulmonary toileting with incentive spirometer reinforced. Pain management/DVT prophylaxis as per orthopedic surgery. Discharge planning in progress for today as per orthopedic surgery, pending PT. patient will be discharged home with home care in a stable condition with guarded prognosis. Follow-up with PCP in 1 week. Thank you for the consult. The impression and plan of care has been dictated as directed. : I performed a history and examination of this patient, discussed the same with the dictator. I agree with the dictator's note ,documented as a scribe. Any additional findings or plans will be noted.
[2024-03-10] MEDS: MULTIVITAMINS, THERA 1 EACH TAB PO SCH (12:26)
[2024-03-10] MEDS: METOPROLOL SUCCINATE (ER) 50 MG TAB.ER.24H PO SCH (12:27)
[2024-03-10 12:30] VITALS: BP 126/66; PULSE 72; RESP 17
== END 2024-03-10 13:20 | disposition home health service (06) ==
LOC: OR 10:38 → 4SSUR 14:17 → OR 03-10 13:20
PROVIDERS: ATTEND Orthopaedic Surgery
DX: M16.11 Unilateral primary osteoarthritis, right hip (principal); G89.18 Other acute postprocedural pain; I10 Essential (primary) hypertension; I48.91 Unspecified atrial fibrillation; E78.5 Hyperlipidemia, unspecified; I25.10 Atherosclerotic heart disease of native coronary artery without angina pectoris; Z79.899 Other long term (current) drug therapy
CPT/HCPCS: 73501; 27130; 64999; J2250; J1100; J0690 ×2; J2405; J1170; J3010; 64447; 85025

== ENCOUNTER → 2024-08-24 | Outpatient (CLI) | payer MEDICARE ==
--- NOTE | 2024-08-30 12:34 | MM ---
Reason for Exam: Screening (asymptomatic). Last screening mammogram was performed 12 month(s) ago. Patient History: Menarche at age 12. First Full-Term at age 24. Postmenopausal. Other cancer. Patient used Hormonal Contraceptives for 1 year. 2000, Benign Excisional Biopsy on the right side. Risk Values: Genia 5 year model risk: 1.9%. NCI Lifetime model risk: 4.3%. Prior Study Comparison: 08/18/2021 Bilateral Screening Mammogram, [facility]. 08/21/2022 Bilateral MG 3D screening mammo w/cad, [facility]. 08/20/2023 Bilateral MG 3D screening mammo w/cad, [facility]. Tissue Density: The breasts are heterogeneously dense, which may obscure small masses. Findings: Analyzed By CAD. The pattern is symmetrical. Pattern is stable. No suspicious groups of microcalcifications, spiculated or lobular masses, architectural distortion or other secondary signs of malignancy are mammographically apparent. Overall Assessment: Benign, BI-RAD 2 Management: Screening Mammogram of both breasts in 1 year. A negative mammogram report should not preclude additional follow up of suspicious palpable abnormalities. Patient should continue monthly self breast exam. A clinical breast exam by your physician is recommended on an annual basis and results should be correlated with mammographic findings. Note on Genia scores and lifetime risk: 1. A Genia score greater than 3% is considered moderate risk. If this is the case, consider specialist referral to assess eligibility for a risk reducing agent. 2. If overall lifetime risk for the development of breast cancer is 20% or higher, the patient may qualify for future screening with alternating mammogram and breast MRI. [facility], , 08/30/2024 12:31 PM. Electronically signed and approved by: Dhaval Yeung D.O. Radiologis
== END | disposition home or self-care (01) ==
LOC: RADMAMWWP 10:51
PROVIDERS: ATTEND Family Medicine
DX: Z12.31 Encounter for screening mammogram for malignant neoplasm of breast
CPT/HCPCS: 77063; 77067